=== PATIENT | male | born 1945 | race Caucasian/White ===

== ENCOUNTER 2021-06-19 06:56 | Day surgery (SDC) | payer MEDICARE, SELFPAY ==
[2021-06-12 11:07] VITALS: BMI 32.5
--- NOTE | 2021-06-18 12:12 | HO.ANESPROP2 ---
HPI - Anesthesia Eval Consult details Narrative: 75yo M for Colonoscopy PMFSH Active Problems Active Problems: All Active Problems (Updated 06/12/21 @ 10:56 by Marita Oconnor RN) Accelerated essential hypertension (Acute) Gout (Acute) Mood disorder (Acute) Dyslipidemia (Acute) Adult general medical exam (Acute) Screening for prostate cancer (Acute) Screening for colon cancer (Acute) Screening for diabetes mellitus (Acute) Past Medical History Medical History Depression Dyslipidemia Elevated cholesterol Gout HTN (hypertension) Mood disorder Screening for colon cancer Screening for diabetes mellitus Screening for prostate cancer Family History Family History Father Prostate cancer Hypertension Mother Hypertension Pancreatic cancer Family/Other Diabetes Surgical History Surgical History History of appendectomy History of colonoscopy History of hydrocelectomy History of knee replacement History of rectal polypectomy Hx of cataract extraction Social History Social History (Updated 06/12/21 @ 11:02 by Marita Oconnor RN) Alcohol intake: current Alcohol intake frequency: a few times a week Alcohol type: beer Patient Tobacco Use Status: Former Tobacco user Advance Directives Information Provided: Yes (informational brochure mailed) Advance Directives on File: No Meds Allergies Allergy/AdvReac Type Severity Reaction Status Date / Time No Known Allergies Allergy Mild NKA Verified 06/19/21 07:23 Home Medications Medication Instructions Recorded Confirmed Last Taken Type aspirin 81 mg tablet,delayed 81 mg PO DAILY 06/12/21 06/12/21 06/11/21 History release Exam Exam Date and Time: June 18, 2021 1212 Height,Weight and Vital Signs: Height 6 ft 1.5 in Weight 113.398 kg Assessment and Plan Assessment Anesthesia Assessment: Chart Reviewed
[2021-06-19 07:26] VITALS: BP 134/74; PULSE 64; RESP 20; TEMP 36.1; O2SAT 95
[2021-06-19] MEDS: Lactated Ringers 1,000 ML 100 ML IVCONT (07:38)
--- NOTE | 2021-06-19 08:01 | MHC.SHP ---
Pre-Procedural Eval Section A Date of Service: 06/19/21 The patient is an INPATIENT: No Changes since office visit: No Cold of Flu in the past 2 weeks, No New Medical Problems, No Changes in Medication and No Patient answered all questions The History & Physical has been completed within 30 days and I have reviewed it.: Yes Section B Chief Complaint: screening Allergies: Allergies Allergy/AdvReac Type Severity Reaction Status Date / Time No Known Allergies Allergy Mild NKA Verified 06/19/21 07:23 Plan I have reviewed the history and physical and performed a pertinent physical examination on my patient. No changes have occurred unless specified.
[2021-06-19 08:46] VITALS: BP 119/69; PULSE 46; RESP 16; TEMP 36.1; O2SAT 98
--- NOTE | 2021-06-19 08:52 | P.BOP_ITS ---
Brief Operative Note Date of Service: 06/19/21 Pre-op diagnosis: screening Post-op diagnosis: same (colon polyps) Procedure: colonoscopy Surgeon: Minesh Miranda Anesthesia: MAC Was an Collection Team Lead used for this Procedure?: No Estimated blood loss (mL): 2 Pathology: other (polyps x2) Condition: stable Disposition: PACU
[2021-06-19 09:00] VITALS: BP 135/63; PULSE 46; RESP 18; TEMP 36.1; O2SAT 98
--- NOTE | 2021-06-19 13:33 | OP_ITS ---
SURGEON: Minesh Miranda MD INDICATIONS: Colon cancer screening and prior history of adenomatous colon polyps. PREOPERATIVE DIAGNOSIS: POSTOPERATIVE DIAGNOSIS: PROCEDURE PERFORMED: ESTIMATED BLOOD LOSS: COMPLICATIONS: ANESTHESIA: Monitored anesthesia care. ASSISTANTS: SPECIMENS: PROCEDURES PERFORMED: Colonoscopy to the terminal ileum with biopsy and snare polypectomy. DESCRIPTION OF PROCEDURE: History and physical performed. The risks and benefits of the procedure were explained to the patient, and informed consent was obtained. The patient was placed in left lateral decubitus position. A digital rectal exam was performed and it was found to be normal. The Olympus pediatric video colonoscope was introduced into the rectum and advanced to the cecum without difficulty. The cecum was identified by transillumination, palpation, and identification of ileocecal valve. Examination was performed. The scope was removed. He tolerated the procedure well and was taken to the recovery area in stable condition. FINDINGS: The terminal ileum was normal. The visualized colonic mucosa was normal. The quality of the prep was good. There was some liquid stool coating the mucosa throughout the colon, which was washed and suctioned. Two polyps were identified. The first was located at 80 cm, measuring approximately 5 mm. This was removed with a snare and biopsy forceps. The second was located at 60 cm, measuring less than 5 mm, and was removed with biopsy forceps. No other polyps were identified. There was moderate sigmoid diverticulosis. Retroflexed examination showed moderate-sized internal hemorrhoids. IMPRESSION: Colon polyps. RECOMMENDATIONS: Follow up the biopsy results. MD SUZIE Jacques/DANEIL / [id number]
== END 2021-06-19 09:13 | disposition home or self-care (01) ==
PROVIDERS: PCP Internal Medicine; Visit Provider Internal Medicine Gastroenterology
PROC: 0DJD8ZZ Inspection of Lower Intestinal Tract, Via Natural or Artificial Opening Endoscopic (ICD-10-PCS; CPT 45378; principal; 2021-06-19 08:10)
DX: Z12.11 Encounter for screening for malignant neoplasm of colon (principal); Z86.010 Personal history of colon polyps; D12.4 Benign neoplasm of descending colon; K57.30 Diverticulosis of large intestine without perforation or abscess without bleeding; K64.8 Other hemorrhoids; F32.9 Major depressive disorder, single episode, unspecified; I10 Essential (primary) hypertension; E78.00 Pure hypercholesterolemia, unspecified; Z87.891 Personal history of nicotine dependence; Z79.82 Long term (current) use of aspirin; Z79.899 Other long term (current) drug therapy
CPT/HCPCS: 45385; 45380; 88305

== ENCOUNTER 2022-01-15 05:59 | Outpatient (REF) | payer MEDICARE, SELFPAY ==
[2022-01-15 06:08] LABS: MANUAL DIFF FLAG NO
[2022-01-15 07:21] LABS: Basophils Absolute Auto 0.1 X10*3/uL (0.0-0.2); Basophils Percent Auto 1.1 % (0-2); Eosinophils Absolute Auto 0.4 X10*3/uL (0.0-0.4); Eosinophils Percent Auto 6.1 % (0-4); Hematocrit 43.5 % (42.0-52.0); Hemoglobin 14.4 g/dl (14.0-18.0); Imm Gran Abs Auto 0.03 X10*3/uL (0.00-0.03); Imm Gran Pct Auto 0.4 % (0.0-0.4); Lymphocytes Absolute Auto 1.5 X10*3/uL (1.2-4.9); Lymphocytes Percent Auto 21.2 % (20-40); Mean Corpuscular HGB Conc 33.1 g/dl (31.0-36.0); Mean Corpuscular Volume 93.5 fL (80.0-98.0); Mean Platelet Volume 12.2 fL (9.4-12.4); Monocytes Absolute Auto 0.9 X10*3/uL (0.1-1.2); Neutrophils Absolute Auto 4.3 x10*3/uL (2.0-8.3); Neutrophils Percent Auto 59.2 % (45-73); Platelet Count 168 X10*3/uL (160-400); Red Blood Count 4.65 X10*6/uL (4.60-5.80); Red Cell Distribution Width 13.2 % (11.0-16.0); White Blood Count 7.3 X10*3/uL (4.8-10.8)
[2022-01-15 07:48] LABS: Alanine Aminotransferase 20 U/L (0-40); Albumin Level 4.3 g/dL (3.5-5.0); Alkaline Phosphatase 85 U/L (39-117); Anion Gap 13 (12-20); Aspartate Amino Transferase 24 U/L (5-37); Bilirubin Total 0.6 mg/dL (0.0-1.0); Blood Urea Nitrogen 23 mg/dL (9-16); Calcium 9.3 mg/dL (8.4-10.2); Carbon Dioxide 31 mmol/L (22-29); Chloride 103 mmol/L (96-108); Estimated Glomerular Filt Rate > 60; Glucose Fasting 95 mg/dL (60-99); Potassium 3.9 mmol/L (3.3-5.1); Sodium 143 mmol/L (135-145); Total Protein 6.7 g/dL (6.5-8.0)
[2022-01-15 08:11] LABS: Prostate Specific Antigen 0.93 ng/mL (<0.05-4.0)
== END 2022-01-15 06:00 | disposition home or self-care (01) ==
LOC: HO.LAB 05:59
PROVIDERS: Absent Provider Internal Medicine; PCP Internal Medicine; Visit Provider Nurse Practitioner Family
DX: Z13.0 Encounter for screening for diseases of the blood and blood-forming organs and certain disorders involving the immune mechanism (principal); Z13.1 Encounter for screening for diabetes mellitus; Z12.5 Encounter for screening for malignant neoplasm of prostate
CPT/HCPCS: 36415; 80053; 84153; 85025

== ENCOUNTER 2022-06-13 08:45 | Outpatient (REF) | payer MEDICARE, SELFPAY ==
--- NOTE | 2022-06-13 08:55 | ECG_ITS ---
Test Reason : essen. htn Blood Pressure : / mmHG Vent. Rate : 052 BPM Atrial Rate : 052 BPM P-R Int : 188 ms QRS Dur : 098 ms QT Int : 420 ms P-R-T Axes : 080 -23 040 degrees QTc Int : 390 ms Sinus bradycardia Intra-ventricular conduction delay Borderline ECG When compared with ECG of 07-SEP-2019 09:39, No significant change was found Referred By: Francisco Mares Electronically Signed By:BJ DESAI MD
[2022-06-13 09:04] LABS: MANUAL DIFF FLAG NO
[2022-06-13 09:44] LABS: Basophils Absolute Auto 0.1 X10*3/uL (0.0-0.2); Basophils Percent Auto 1.1 % (0-2); Eosinophils Absolute Auto 0.3 X10*3/uL (0.0-0.4); Hematocrit 43.7 % (42.0-52.0); Hemoglobin 14.3 g/dl (14.0-18.0); Imm Gran Abs Auto 0.02 X10*3/uL (0.00-0.03); Imm Gran Pct Auto 0.3 % (0.0-0.4); Lymphocytes Absolute Auto 1.4 X10*3/uL (1.2-4.9); Lymphocytes Percent Auto 22.3 % (20-40); Mean Corpuscular HGB Conc 32.7 g/dl (31.0-36.0); Mean Corpuscular Hemoglobin 30.4 pg (27.0-33.0); Monocytes Absolute Auto 0.5 X10*3/uL (0.1-1.2); Monocytes Percent Auto 8.1 % (2-11); Neutrophils Absolute Auto 4.1 x10*3/uL (2.0-8.3); Neutrophils Percent Auto 63.2 % (45-73); Platelet Count 162 X10*3/uL (160-400); Red Cell Distribution Width 13.1 % (11.0-16.0); White Blood Count 6.4 X10*3/uL (4.8-10.8)
[2022-06-13 09:46] LABS: Prothrombin Time 11.2 SEC (10.0-13.1)
[2022-06-13 09:51] LABS: Estimated Average Glucose 103 mg/dL; Hemoglobin A1c % 5.2 %
[2022-06-13 10:13] LABS: Anion Gap 17 (12-20); Blood Urea Nitrogen 22 mg/dL (9-16); Calcium 9.4 mg/dL (8.4-10.2); Carbon Dioxide 27 mmol/L (22-29); Chloride 100 mmol/L (96-108); Estimated Glomerular Filt Rate > 60; Glucose Fasting 138 mg/dL (60-99); Sodium 140 mmol/L (135-145)
[2022-06-13 10:45] LABS: Creatinine Urine 206.77 mg/dL
== END 2022-06-13 08:46 | disposition home or self-care (01) ==
LOC: HO.LAB 08:45
PROVIDERS: PCP Internal Medicine; Visit Provider Internal Medicine
DX: I10 Essential (primary) hypertension (principal); R51.9 Headache, unspecified; E11.69 Type 2 diabetes mellitus with other specified complication; E66.01 Morbid (severe) obesity due to excess calories; E11.65 Type 2 diabetes mellitus with hyperglycemia; Z13.0 Encounter for screening for diseases of the blood and blood-forming organs and certain disorders involving the immune mechanism
CPT/HCPCS: 36415; 80048; 82043; 82947; 83036; 85025; 85610; 85730; 93005

== ENCOUNTER 2023-05-09 06:10 | Outpatient (REF) | payer MEDICARE, SELFPAY ==
[2023-05-09 06:23] LABS: MANUAL DIFF FLAG NO
[2023-05-09 07:13] LABS: Basophils Absolute Auto 0.1 X10*3/uL (0.0-0.2); Basophils Percent Auto 0.9 % (0-2); Eosinophils Absolute Auto 0.3 X10*3/uL (0.0-0.4); Eosinophils Percent Auto 3.7 % (0-4); Hematocrit 45.9 % (42.0-52.0); Hemoglobin 14.8 g/dl (14.0-18.0); Imm Gran Abs Auto 0.05 X10*3/uL (0.00-0.03); Imm Gran Pct Auto 0.6 % (0.0-0.4); Lymphocytes Absolute Auto 1.3 X10*3/uL (1.2-4.9); Lymphocytes Percent Auto 15.8 % (20-40); Mean Corpuscular HGB Conc 32.2 g/dl (31.0-36.0); Mean Corpuscular Hemoglobin 30.1 pg (27.0-33.0); Mean Corpuscular Volume 93.5 fL (80.0-98.0); Mean Platelet Volume 11.5 fL (9.4-12.4); Monocytes Absolute Auto 0.9 X10*3/uL (0.1-1.2); Monocytes Percent Auto 10.1 % (2-11); Neutrophils Absolute Auto 5.9 x10*3/uL (2.0-8.3); Neutrophils Percent Auto 68.9 % (45-73); Platelet Count 198 X10*3/uL (160-400); Red Blood Count 4.91 X10*6/uL (4.60-5.80); Red Cell Distribution Width 14.5 % (11.0-16.0); White Blood Count 8.5 X10*3/uL (4.8-10.8)
[2023-05-09 07:28] LABS: Alanine Aminotransferase 15 U/L (0-40); Albumin Level 4.4 g/dL (3.5-5.0); Alkaline Phosphatase 91 U/L (39-117); Anion Gap 20 (12-20); Aspartate Amino Transferase 22 U/L (5-37); Bilirubin Total 0.8 mg/dL (0.0-1.0); Blood Urea Nitrogen 15 mg/dL (9-16); Calcium 10.4 mg/dL (8.4-10.2); Carbon Dioxide 27 mmol/L (22-29); Chloride 103 mmol/L (96-108); Cholesterol 165 mg/dL (<200); Estimated Glomerular Filt Rate > 60; Glucose Fasting 99 mg/dL (60-99); HDL Cholesterol 58 mg/dL (>40); LDL Cholesterol Calculated 85 mg/dL (<100); Potassium 4.1 mmol/L (3.3-5.1); Sodium 146 mmol/L (135-145); Total Protein 7.4 g/dL (6.5-8.0); Triglycerides 112 mg/dL (<150)
[2023-05-09 07:53] LABS: Prostate Specific Antigen Scr 0.98 ng/mL (<0.05-4.0)
== END 2023-05-09 06:11 | disposition home or self-care (01) ==
LOC: HO.LAB 06:10
PROVIDERS: PCP Internal Medicine; Visit Provider Internal Medicine
DX: Z00.00 Encounter for general adult medical examination without abnormal findings (principal); Z12.5 Encounter for screening for malignant neoplasm of prostate; D64.9 Anemia, unspecified; N28.9 Disorder of kidney and ureter, unspecified; E78.5 Hyperlipidemia, unspecified
CPT/HCPCS: 36415; 80053; 80061; 84153; 85025

== ENCOUNTER 2023-05-13 09:46 | Outpatient (AMB) | payer MEDICARE, SELFPAY ==
[2023-05-13 09:47] VITALS: BP 144/64; PULSE 65; O2SAT 98; BMI 32.0
--- NOTE | 2023-05-13 09:47 | A.OFFPC_ITS ---
Vital Signs 05/13/23 09:47 Height 6 ft 1.5 in Weight 246 lb BMI 32.0 BP 144/64 H Blood Pressure Location Lt brachial Position Sitting Pulse 65 Pulse Source Pulse Oximeter Pulse Oximetry (%) 98 Oxygen Delivery Method Room Air Intake Visit Reasons: increased fatigue and anxiety Allergies No Known Allergies Allergy (Mild, Verified 05/13/23 09:47) NKA Medication List - Last Reconciled 05/13/23 by Francisco Mares MD allopurinol 300 mg PO DAILY amlodipine 10 mg PO DAILY aspirin 81 mg PO DAILY hydrochlorothiazide 25 mg PO DAILY lovastatin 80 mg (2 x 40 mg) PO DAILY sertraline 100 mg PO DAILY Tobacco use date assessed: 01/13/23 Fall risk assessment: No Falls in past year Last assessed Fall Risk: 05/13/23 Dental Screening Dental Screen Date: 05/13/23 Did you have a dental visit in the last 12 months?: No Did you have a dental problem in the last 6 months where you did not have access to dental care?: No Was dental information given to patient?: Patient has dentist HPI increased fatigue and anxiety HPI Details gout htn and hyperlipidemia; stable on rx PFSH Medical History (Updated 05/13/23 @ 10:59 by Francisco Mares MD) Gout Hypertension Elevated cholesterol HTN (hypertension) Depression Screening for prostate cancer Screening for colon cancer Screening for diabetes mellitus Dyslipidemia Mood disorder Surgical History History of total right knee replacement Hx of cataract extraction History of colonoscopy History of knee replacement History of rectal polypectomy History of hydrocelectomy History of appendectomy Family History Father Prostate cancer Hypertension Mother Hypertension Pancreatic cancer Family/Other Diabetes Sister Mental health disorder Social History Housing: House Alcohol intake: current Alcohol intake frequency: a few times a week Alcohol type: beer Patient Tobacco Use Status: Former Tobacco user e-Cigarette/Vaping Use: Never Used Second Hand Smoke Exposure: No service: No Current occupational status: retired Cognitive needs: No Hearing needs: No Vision needs: No Questionnaire PHQ-9 Over the last 2 weeks, how often have you been bothered by any of the following problems? 1. Little interest or pleasure in doing things: not at all 2. Feeling down, depressed, or hopeless: not at all 3. Trouble falling or staying asleep, or sleeping too much: not at all 4. Feeling tired or having little energy: not at all 5. Poor appetite or overeating: not at all 6. Feeling bad about yourself - or that you are a failure or have let yourself or your family down: not at all 7. Trouble concentrating on things, such as reading the newspaper or watching television: not at all 8. Moving or speaking so slowly that other people could have noticed. Or the opposite - being so fidgety or restless that you have been moving around a lot more than usual: not at all 9. Thoughts that you would be better off or of hurting yourself in some way: not at all Total score: 0 Depression Screening Interpretation: Negative 05372 - PHQ-9 Billing: Yes Source: Developed by Drs. Iban Quezada, Belinda Banda, Vinnie allen nd colleagues, with an educational ricky from [employer]. Thrive Questionnaire Date Thrive assessed: 01/13/23 AUDIT C Alcohol Use Questionnaire (AUDIT-C) 1. How often do you have a drink containing alcohol?: 2-3 times a week 2. How many drinks containing alcohol do you have on a typical day when you are drinking?: 5 or 6 3. How often do you have six or more drinks on one occasion?: Weekly Total Score: 8 Score Reviewed/Action Taken: Yes NIRU-7 AMB Questionnaire NIRU-7 Date NIRU - 7 assessed: 01/13/23 Source: Developed by Drs. Iban Quezada, Belinda Banda, Vinnie Greenfield and colleagues, with an educational ricky from [employer]. Review of Systems Const Denies chills, Denies headache(s) and Denies weight loss ENT Denies headache(s) Card Denies chest pain, Denies syncope, Denies irregular heart rhythm and Denies dyspnea Resp Denies chest congestion, Denies cough and Denies dyspnea GI Denies abdominal pain, Denies change in stool character, Denies nausea and Denies vomiting Musc Denies deformity and Denies joint swelling Neuro Denies syncope and Denies headache(s) Physical exam (Primary Care) Vital Signs: Last Vital Signs Pulse 65 05/13/23 09:47 BP 144/64 H 05/13/23 09:47 Pulse Ox 98 05/13/23 09:47 Oxygen Delivery Method Room Air 05/13/23 09:47 BMI result Body Mass Index 32.0 Tobacco/Smoking Status: Tobacco use Status Tobacco use date assessed 01/13/23 05/13/23 09:48 Patient Tobacco Use Status Former Tobacco user 05/13/23 09:48 e-Cigarette/Vaping Use Never Used 05/13/23 09:48 PHQ-9: PHQ-9 Score PHQ-9: Total score 0 05/13/23 09:58 Depression Screening Interpretation: Negative Thrive Assessment: Date of Thrive Assessment Date Thrive assessed 01/13/23 05/13/23 09:48 Const General: cooperative, comfortable, no acute distress and alert Neck Neck: Yes no lymphadenopathy Thyroid: Thyroid normal Resp Effort & Inspection: normal respiratory effort Auscultation: clear to auscultation bilaterally Percussion: percussion normal Cardio Jugular venous distension: no JVD Palpation: normal PMI Rate: regular rate Rhythm: regular rhythm Heart sounds: S1 normal heart sound present and S2 normal heart sound present GI Inspection: Yes normal to inspection Palpation (GI): No hepatosplenomegaly present Skin General skin exam: no rashes or lesions noted Extrem General: Yes no clubbing, cyanosis or edema Office Procedures Flu Questionnaire Does the patient have a severe egg allergy?: No Does the patient have severe life threatening allergies?: No Does the patient have a fever or illness today?: No Has the patient ever had Guillain-Dale Syndrome?: No Has the patient ever had any past reaction to a flu shot?: No Immunizations flu vacc [id number] 6mos up(PF) 60 mcg(15 mcgx4)/0.5 mL IM syringe Performing Provider: Francisco Mares MD [facility] Administered by: ISIDRA Braga on 05/13/23 09:58 Dose Route Admin Location Dispensed Lot Number Expiration Date NDC [employer] 0.5 mL IM Right Deltoid 0.5 mL [id number] 02/08/24 01005-881-29 [place] VIS Given Date VIS Provided VIS Publication Date 05/13/23 Single Vaccine 21 Eligibility Eligibility Date Funding Source Not [facility] Eligible 05/13/23 Private Assessment and Plan Assessment & Plan (1) Hyperlipidemia: Code(s): E78.5 - Hyperlipidemia, unspecified Plan: stable; same rx (2) Hypertension: Code(s): I10 - Essential (primary) hypertension Plan: stable; same rx (3) Gout: Code(s): M10.9 - Gout, unspecified Plan: stable; same rx Orders: Orders ECG 12 lead EKG Today R00.2 - Palpitations Influenza 3414-0333 Immunization Today Z23 - Encounter for immunization Thyroid Stimulating Hormone Today E03.9 - Hypothyroidism, unspecified Coding Level of Care Code Est Pt Level 4 (46043) Diagnoses Hyperlipidemia E78.5 Hypertension I10 Gout M10.9
== END 2023-05-13 10:13 | disposition home or self-care (01) ==
PROVIDERS: PCP Internal Medicine; Visit Provider Internal Medicine
DX: E78.5 Hyperlipidemia, unspecified (principal); I10 Essential (primary) hypertension; M10.9 Gout, unspecified; Z23 Encounter for immunization
CPT/HCPCS: 90471; 90686; 99214

== ENCOUNTER 2023-05-13 10:20 | Outpatient (REF) | payer MEDICARE, SELFPAY ==
--- NOTE | 2023-05-13 10:25 | ECG_ITS ---
Test Reason : palpitations Blood Pressure : / mmHG Vent. Rate : 062 BPM Atrial Rate : 062 BPM P-R Int : 192 ms QRS Dur : 100 ms QT Int : 418 ms P-R-T Axes : 077 -38 041 degrees QTc Int : 424 ms Sinus rhythm with occasional Premature ventricular complexes Left axis deviation Abnormal ECG When compared with ECG of 13-JUN-2022 08:55, Premature ventricular complexes are now Present QRS axis Shifted left Referred By: Francisco Mares Electronically Signed By:THANH PROCTOR
[2023-05-13 13:43] LABS: Cholesterol 159 mg/dL (<200); Glucose Fasting 107 mg/dL (60-99); HDL Cholesterol 53 mg/dL (>40); LDL Cholesterol Calculated 79 mg/dL (<100); Thyroid Stimulating Hormone 1.83 uIU/mL (0.32-4.0); Triglycerides 137 mg/dL (<150)
== END 2023-05-13 10:21 | disposition home or self-care (01) ==
LOC: HO.LAB 10:20
PROVIDERS: PCP Internal Medicine; Visit Provider Internal Medicine
DX: R73.9 Hyperglycemia, unspecified (principal); E78.5 Hyperlipidemia, unspecified; E03.9 Hypothyroidism, unspecified; R00.2 Palpitations
CPT/HCPCS: 36415; 80061; 82947; 84443; 93005

== ENCOUNTER 2023-09-25 09:21 | Outpatient (AMB) | payer MEDICARE, SELFPAY ==
[2023-09-25 09:22] VITALS: BP 118/68; PULSE 60; O2SAT 98; BMI 32.3
--- NOTE | 2023-09-25 09:22 | MHC.PC.OV ---
Vital Signs 09/25/23 09:22 Height 6 ft 1.5 in Weight 248 lb BMI 32.3 BP 118/68 Blood Pressure Location Lt brachial Position Sitting Pulse 60 Pulse Source Pulse Oximeter Pulse Oximetry (%) 98 Oxygen Delivery Method Room Air Intake Visit Reasons: 4 month f/u Case Filler Required: No Candle Molder Hand: Not Required per policy Accompanied by: Self / Same As Patient Allergies No Known Allergies Allergy (Mild, Verified 09/25/23 09:23) NKA Medication List - Last Reconciled 09/25/23 by Francisco Mares MD allopurinol 300 mg PO DAILY amlodipine 10 mg PO DAILY aspirin 81 mg PO DAILY hydrochlorothiazide 25 mg PO DAILY lovastatin 80 mg (2 x 40 mg) PO DAILY sertraline 100 mg PO DAILY Tobacco use date assessed: 09/25/23 Fall risk assessment: No Falls in past year Last assessed Fall Risk: 09/25/23 Dental Screening Dental Screen Date: 09/25/23 Did you have a dental visit in the last 12 months?: Yes Did you have a dental problem in the last 6 months where you did not have access to dental care?: No Was dental information given to patient?: Patient has dentist HPI 4 month f/u HPI Details depression htn and gout; doing well and compliant [facility] Medical History (Updated 05/13/23 @ 10:59 by Francisco Mares MD) Gout Hypertension Elevated cholesterol HTN (hypertension) Depression Screening for prostate cancer Screening for colon cancer Screening for diabetes mellitus Dyslipidemia Mood disorder Surgical History History of total right knee replacement Hx of cataract extraction History of colonoscopy History of knee replacement History of rectal polypectomy History of hydrocelectomy History of appendectomy Family History Father Prostate cancer Hypertension Mother Hypertension Pancreatic cancer Family/Other Diabetes Sister Mental health disorder Social History Housing: House Alcohol intake: current Alcohol intake frequency: a few times a week Alcohol type: beer Patient Tobacco Use Status: Former Tobacco user e-Cigarette/Vaping Use: Never Used Second Hand Smoke Exposure: No service: No Current occupational status: retired Cognitive needs: No Hearing needs: No Vision needs: No Questionnaire PHQ-9 Over the last 2 weeks, how often have you been bothered by any of the following problems? 1. Little interest or pleasure in doing things: not at all 2. Feeling down, depressed, or hopeless: not at all 3. Trouble falling or staying asleep, or sleeping too much: not at all 4. Feeling tired or having little energy: not at all 5. Poor appetite or overeating: not at all 6. Feeling bad about yourself - or that you are a failure or have let yourself or your family down: not at all 7. Trouble concentrating on things, such as reading the newspaper or watching television: not at all 8. Moving or speaking so slowly that other people could have noticed. Or the opposite - being so fidgety or restless that you have been moving around a lot more than usual: not at all 9. Thoughts that you would be better off or of hurting yourself in some way: not at all Total score: 0 Depression Screening Interpretation: Negative Depression Screening Done: Yes 49126 - PHQ-9 Billing: Yes Source: Developed by Drs. Iban Quezada, Belinda Banda, Vinnie Greenfield and colleagues, with an educational ricky from [employer]. Thrive Questionnaire Date Thrive assessed: 09/25/23 I am a: Patient What is your living situation today?: I have a steady place to live Within the past 12 months, did the food you bought not last and you didn't have the money to get more?: Never true Within the past 12 months, did you worry whether your food would run out before you got money to buy more?: Never true Do you have trouble paying for medicines?: No Do you have trouble getting transportation to medical appointments?: No Do you have trouble paying your heating and electricity bill?: No Do you have trouble taking care of your child, family member or friend?: No Do you have trouble with day-to-day activities such as bathing, preparing meals, shopping, managing finances, etc.?: No Are you currently unemployed and looking for a job?: No Are you interested in more education?: No Please select the resources that you would like help with: None THRIVE Score: 0 AUDIT C Alcohol Use Questionnaire (AUDIT-C) 1. How often do you have a drink containing alcohol?: 2-3 times a week 2. How many drinks containing alcohol do you have on a typical day when you are drinking?: 5 or 6 3. How often do you have six or more drinks on one occasion?: Weekly Total Score: 8 Score Reviewed/Action Taken: Yes NIRU-7 AMB Questionnaire NIRU-7 Date NIRU - 7 assessed: 09/25/23 Feeling nervous, anxious, or on edge: 0 = Not at all Not being able to stop or control worryin = Not at all Worrying too much about different things: 0 = Not at all Trouble relaxin = Not at all Being so restless that it is hard to sit still: 0 = Not at all Becoming easily annoyed or irritable: 0 = Not at all Feeling afraid as if something awful might happen: 0 = Not at all Total NIRU-7 score (0-4 normal; 5-9 mild; 10-14 moderate; 15-21 severe): 0 Source: Developed by Drs. Iban Quezada, Belinda Banda, Vinnie Greenfield and colleagues, with an educational ricky from [employer]. NIRU-7 Assessment Billing NIRU-7 Assessment Tool: NIRU-7 Assessment 30234 Review of Systems Const Denies chills, Denies headache(s) and Denies weight loss ENT Denies headache(s) Card Denies chest pain, Denies syncope, Denies irregular heart rhythm and Denies dyspnea Resp Denies chest congestion, Denies cough and Denies dyspnea GI Denies abdominal pain, Denies change in stool character, Denies nausea and Denies vomiting Musc Denies deformity and Denies joint swelling Neuro Denies syncope and Denies headache(s) Physical exam (Primary Care) Vital Signs: Last Vital Signs Pulse 60 09/25/23 09:22 BP 118/68 09/25/23 09:22 Pulse Ox 98 09/25/23 09:22 Oxygen Delivery Method Room Air 09/25/23 09:22 BMI result Body Mass Index 32.3 Tobacco/Smoking Status: Tobacco use Status Tobacco use date assessed 09/25/23 09/25/23 09:24 Patient Tobacco Use Status Former Tobacco user 09/25/23 09:24 e-Cigarette/Vaping Use Never Used 09/25/23 09:24 PHQ-9: PHQ-9 Score PHQ-9: Total score 0 09/25/23 09:24 Depression Screening Interpretation: Negative Thrive Assessment: Date of Thrive Assessment Date Thrive assessed 09/25/23 09/25/23 09:24 Const General: cooperative, comfortable, no acute distress and alert Neck Neck: Yes no lymphadenopathy Thyroid: Thyroid normal Resp Effort & Inspection: normal respiratory effort Auscultation: clear to auscultation bilaterally Percussion: percussion normal Cardio Jugular venous distension: no JVD Palpation: normal PMI Rate: regular rate Rhythm: regular rhythm Heart sounds: S1 normal heart sound present and S2 normal heart sound present GI Inspection: Yes normal to inspection Palpation (GI): No hepatosplenomegaly present Skin General skin exam: no rashes or lesions noted Extrem General: Yes no clubbing, cyanosis or edema Assessment and Plan Assessment & Plan (1) Gout: Code(s): M10.9 - Gout, unspecified Plan: stable; same rx (2) Depression: Code(s): F32.A - Depression, unspecified Plan: stable; same rx (3) Hypertension: Code(s): I10 - Essential (primary) hypertension Plan: stable; sme rx Orders: Orders Comprehensive [place]. Panel Fast Today N28.9 - Disorder of kidney and ureter, unspecified Lipid Panel Today E78.5 - Hyperlipidemia, unspecified Uric Acid Today M10.9 - Gout, unspecified Complete Blood Count Auto Diff Today D64.9 - Anemia, unspecified Medications: Refilled sertraline 100 mg PO DAILY 90 tabs 8RF Coding Level of Care Code Est Pt Level 4 (68904) Diagnoses Gout M10.9 Depression F32.A Hypertension I10 Additional Codes NIRU-7 Assessment Billing - NIRU-7 Assessment Tool: NIRU-7 Assessment 59650 ([id number])
== END 2023-09-25 09:48 | disposition home or self-care (01) ==
PROVIDERS: PCP Internal Medicine; Visit Provider Internal Medicine
DX: M10.9 Gout, unspecified (principal); F32.A Depression, unspecified; I10 Essential (primary) hypertension
CPT/HCPCS: 99214

== ENCOUNTER 2024-04-19 06:00 | Outpatient (REF) | payer MEDICARE, SELFPAY ==
[2024-04-19 06:15] LABS: MANUAL DIFF FLAG NO
[2024-04-19 07:50] LABS: Basophils Absolute Auto 0.1 X10*3/uL (0.0-0.2); Basophils Percent Auto 1.1 % (0-2); Eosinophils Absolute Auto 0.4 X10*3/uL (0.0-0.4); Eosinophils Percent Auto 5.4 % (0-4); Hematocrit 43.9 % (42.0-52.0); Hemoglobin 14.3 g/dl (14.0-18.0); Imm Gran Abs Auto 0.05 X10*3/uL (0.00-0.03); Imm Gran Pct Auto 0.7 % (0.0-0.4); Lymphocytes Absolute Auto 1.1 X10*3/uL (1.2-4.9); Lymphocytes Percent Auto 15.3 % (20-40); Mean Corpuscular HGB Conc 32.6 g/dl (31.0-36.0); Mean Corpuscular Hemoglobin 30.9 pg (27.0-33.0); Mean Corpuscular Volume 94.8 fL (80.0-98.0); Mean Platelet Volume 11.3 fL (9.4-12.4); Monocytes Absolute Auto 0.8 X10*3/uL (0.1-1.2); Monocytes Percent Auto 10.8 % (2-11); Neutrophils Absolute Auto 4.9 x10*3/uL (2.0-8.3); Neutrophils Percent Auto 66.7 % (45-73); Platelet Count 217 X10*3/uL (160-400); Red Blood Count 4.63 X10*6/uL (4.60-5.80); Red Cell Distribution Width 13.4 % (11.0-16.0); White Blood Count 7.3 X10*3/uL (4.8-10.8)
[2024-04-19 08:20] LABS: Alanine Aminotransferase 14 U/L (0-40); Albumin Level 4.1 g/dL (3.5-5.0); Alkaline Phosphatase 85 U/L (39-117); Aspartate Amino Transferase 20 U/L (5-37); Bilirubin Total 0.4 mg/dL (0.0-1.0); Blood Urea Nitrogen 19 mg/dL (9-16); Calcium 9.9 mg/dL (8.4-10.2); Carbon Dioxide 29 mmol/L (22-29); Chloride 105 mmol/L (96-108); Cholesterol 153 mg/dL (<200); Estimated Glomerular Filt Rate > 60; Glucose Fasting 96 mg/dL (60-99); HDL Cholesterol 50 mg/dL (>40); LDL Cholesterol Calculated 80 mg/dL (<100); Potassium 4.1 mmol/L (3.3-5.1); Sodium 145 mmol/L (135-145); Total Protein 6.9 g/dL (6.5-8.0); Triglycerides 115 mg/dL (<150)
[2024-04-19 08:44] LABS: Anion Gap 14 (12-20); Uric Acid 5.8 mg/dL (3.4-7.0)
== END 2024-04-19 06:01 | disposition home or self-care (01) ==
LOC: HO.LAB 06:00
PROVIDERS: PCP Internal Medicine; Visit Provider Internal Medicine
DX: N28.9 Disorder of kidney and ureter, unspecified (principal); D64.9 Anemia, unspecified; E78.5 Hyperlipidemia, unspecified; M10.9 Gout, unspecified
CPT/HCPCS: 36415; 80053; 80061; 84550; 85025

== ENCOUNTER 2024-04-21 09:50 | Outpatient (AMB) | payer MEDICARE, SELFPAY ==
[2024-04-21 09:52] VITALS: BP 132/68; PULSE 64; O2SAT 98; BMI 32.3
--- NOTE | 2024-04-21 09:52 | A.OFFPC_ITS ---
Vital Signs 04/21/24 09:52 Height 6 ft 1.5 in Weight 248 lb BMI 32.3 BP 132/68 Blood Pressure Location Lt brachial Position Sitting Pulse 64 Pulse Source Pulse Oximeter Pulse Oximetry (%) 98 Oxygen Delivery Method Room Air Intake Visit Reasons: 6 month f/u appt Top Collar Baster Required: No Accompanied by: Self / Same As Patient Allergies No Known Allergies Allergy (Mild, Verified 04/21/24 09:54) NKA Medication List - Last Reconciled 04/21/24 by Francisco Mares MD allopurinol 300 mg PO DAILY amlodipine 10 mg PO DAILY aspirin 81 mg PO DAILY hydrochlorothiazide 25 mg PO DAILY lovastatin 80 mg (2 x 40 mg) PO DAILY sertraline 100 mg PO DAILY Tobacco use date assessed: 09/25/23 Fall risk assessment: 2 + Falls in past year (Having vision issues after surgery.) Last assessed Fall Risk: 04/21/24 Dental Screening Dental Screen Date: 09/25/23 HPI 6 month f/u appt HPI Details HTN on Rx; doing well; compliant [facility] Medical History (Updated 05/13/23 @ 10:59 by Francisco Mares MD) Gout Hypertension Elevated cholesterol HTN (hypertension) Depression Screening for prostate cancer Screening for colon cancer Screening for diabetes mellitus Dyslipidemia Mood disorder Surgical History History of total right knee replacement Hx of cataract extraction History of colonoscopy History of knee replacement History of rectal polypectomy History of hydrocelectomy History of appendectomy Family History Father Prostate cancer Hypertension Mother Hypertension Pancreatic cancer Family/Other Diabetes Sister Mental health disorder Social History Housing: House Alcohol intake: current Alcohol intake frequency: a few times a week Alcohol type: beer Patient Tobacco Use Status: Former Tobacco user Tobacco use type: Cigarette e-Cigarette/Vaping Use: Never Used Second Hand Smoke Exposure: No service: No Current occupational status: retired Cognitive needs: No Hearing needs: No Vision needs: No Questionnaire PHQ-9 Over the last 2 weeks, how often have you been bothered by any of the following problems? 1. Little interest or pleasure in doing things: not at all 2. Feeling down, depressed, or hopeless: not at all 3. Trouble falling or staying asleep, or sleeping too much: not at all 4. Feeling tired or having little energy: not at all 5. Poor appetite or overeating: not at all 6. Feeling bad about yourself - or that you are a failure or have let yourself or your family down: not at all 7. Trouble concentrating on things, such as reading the newspaper or watching television: not at all 8. Moving or speaking so slowly that other people could have noticed. Or the opposite - being so fidgety or restless that you have been moving around a lot more than usual: not at all 9. Thoughts that you would be better off or of hurting yourself in some way: not at all Total score: 0 Depression Screening Interpretation: Negative Depression Screening Done: Yes 91662 - PHQ-9 Billing: Yes Source: Developed by Drs. Iban Quezada, Belinda Banda, Vinnie Greenfield and colleagues, with an educational ricky from [employer]. Thrive Questionnaire Date Thrive assessed: 09/25/23 AUDIT C Alcohol Use Questionnaire (AUDIT-C) 1. How often do you have a drink containing alcohol?: 2-3 times a week 2. How many drinks containing alcohol do you have on a typical day when you are drinking?: 5 or 6 3. How often do you have six or more drinks on one occasion?: Weekly Total Score: 8 Score Reviewed/Action Taken: Yes NIRU-7 AMB Questionnaire NIRU-7 Date NIRU - 7 assessed: 09/25/23 Source: Developed by Drs. Iban Quezada, Belinda Banda, Vinnie Greenfield and colleagues, with an educational ricky from [employer]. Review of Systems Const Denies chills, Denies headache(s) and Denies weight loss ENT Denies headache(s) Card Denies chest pain, Denies syncope, Denies irregular heart rhythm and Denies dyspnea Resp Denies chest congestion, Denies cough and Denies dyspnea GI Denies abdominal pain, Denies change in stool character, Denies nausea and Denies vomiting Musc Denies deformity and Denies joint swelling Neuro Denies syncope and Denies headache(s) Physical exam (Primary Care) Vital Signs: Last Vital Signs Pulse 64 04/21/24 09:52 BP 132/68 04/21/24 09:52 Pulse Ox 98 04/21/24 09:52 Oxygen Delivery Method Room Air 04/21/24 09:52 BMI result Body Mass Index 32.3 Tobacco/Smoking Status: Tobacco use Status Tobacco use date assessed 09/25/23 04/21/24 09:56 Patient Tobacco Use Status Former Tobacco user 04/21/24 09:56 Tobacco use type Cigarette 04/21/24 09:56 e-Cigarette/Vaping Use Never Used 04/21/24 09:56 PHQ-9: PHQ-9 Score PHQ-9: Total score 0 04/21/24 09:56 Depression Screening Interpretation: Negative Thrive Assessment: Date of Thrive Assessment Date Thrive assessed 09/25/23 04/21/24 09:56 Const General: cooperative, comfortable, no acute distress and alert Neck Neck: Yes no lymphadenopathy Thyroid: Thyroid normal Resp Effort & Inspection: normal respiratory effort Auscultation: clear to auscultation bilaterally Percussion: percussion normal Cardio Jugular venous distension: no JVD Palpation: normal PMI Rate: regular rate Rhythm: regular rhythm Heart sounds: S1 normal heart sound present and S2 normal heart sound present GI Inspection: Yes normal to inspection Palpation (GI): No hepatosplenomegaly present Skin General skin exam: no rashes or lesions noted Extrem General: Yes no clubbing, cyanosis or edema Assessment and Plan Assessment & Plan (1) Hypertension: Code(s): I10 - Essential (primary) hypertension Plan: stable; same rx Orders: Orders Complete Blood Count Auto Diff Today Z13.0 - Encounter for screening for diseases of the blood and blood-forming organs and certain disorders involving the immune mechanism Thyroid Stimulating Hormone Today Z13.29 - Encounter for screening for other suspected endocrine disorder Lipid Panel Today Z13.220 - Encounter for screening for lipoid disorders Comprehensive [place]. Panel Fast Today Z13.9 - Encounter for screening, unspecified Coding Level of Care Code Est Pt Level 3 (57229) Diagnoses Hypertension I10
== END 2024-04-21 10:11 | disposition home or self-care (01) ==
PROVIDERS: PCP Internal Medicine; Visit Provider Internal Medicine
DX: I10 Essential (primary) hypertension (principal)
CPT/HCPCS: 99213

== ENCOUNTER 2024-05-31 12:44 | Outpatient (AMB) | payer MEDICARE, SELFPAY ==
--- NOTE | 2024-05-31 12:48 | A.OFFPC_ITS ---
Vital Signs 05/31/24 12:49 Height 6 ft 1.5 in Weight 254 lb BMI 33.1 BP 144/74 H Blood Pressure Location Lt brachial Position Sitting Pulse 98 Pulse Source Pulse Oximeter Pulse Oximetry (%) 93 Oxygen Delivery Method Room Air Intake Visit Reasons: fishers retina 06/16 [employer] Required: No Accompanied by: Self / Same As Patient Allergies No Known Allergies Allergy (Mild, Verified 05/31/24 12:49) NKA Medication List - Last Reconciled 06/01/24 by Francisco Mares MD allopurinol 300 mg PO DAILY amlodipine 10 mg PO DAILY aspirin 81 mg PO DAILY hydrochlorothiazide 25 mg PO DAILY lovastatin 80 mg (2 x 40 mg) PO DAILY sertraline 100 mg PO DAILY Tobacco use date assessed: 09/25/23 Fall risk assessment: 2 + Falls in past year (2-3 falls) Last assessed Fall Risk: 05/31/24 Dental Screening Dental Screen Date: 09/25/23 HPI fishers retina 06/16 HPI Details having surgery on his left eye for a retinal detachment; has gout, hypertension and hyperlipidemia; all well controlled; depression also stable on rx; no history of CAD PFSH Medical History (Updated 05/13/23 @ 10:59 by Francisco Mares MD) Gout Hypertension Elevated cholesterol HTN (hypertension) Depression Screening for prostate cancer Screening for colon cancer Screening for diabetes mellitus Dyslipidemia Mood disorder Surgical History History of total right knee replacement Hx of cataract extraction History of colonoscopy History of knee replacement History of rectal polypectomy History of hydrocelectomy History of appendectomy Family History Father Prostate cancer Hypertension Mother Hypertension Pancreatic cancer Family/Other Diabetes Sister Mental health disorder Social History Housing: House Alcohol intake: current Alcohol intake frequency: a few times a week Alcohol type: beer Patient Tobacco Use Status: Former Tobacco user Tobacco use type: Cigarette e-Cigarette/Vaping Use: Never Used Second Hand Smoke Exposure: No service: No Current occupational status: retired Cognitive needs: No Hearing needs: No Vision needs: No Questionnaire PHQ-9 Over the last 2 weeks, how often have you been bothered by any of the following problems? 1. Little interest or pleasure in doing things: not at all 2. Feeling down, depressed, or hopeless: not at all 3. Trouble falling or staying asleep, or sleeping too much: not at all 4. Feeling tired or having little energy: not at all 5. Poor appetite or overeating: not at all 6. Feeling bad about yourself - or that you are a failure or have let yourself or your family down: not at all 7. Trouble concentrating on things, such as reading the newspaper or watching television: not at all 8. Moving or speaking so slowly that other people could have noticed. Or the opposite - being so fidgety or restless that you have been moving around a lot more than usual: not at all 9. Thoughts that you would be better off or of hurting yourself in some way: not at all Total score: 0 Depression Screening Interpretation: Negative Depression Screening Done: Yes 50953 - PHQ-9 Billing: Yes Source: Developed by Drs. Iban Quezada, Belinda Banda, Vinnie Greenfield and colleagues, with an educational ricky from [employer]. Thrive Questionnaire Date Thrive assessed: 09/25/23 I am a: Patient What is your living situation today?: I have a steady place to live Within the past 12 months, did the food you bought not last and you didn't have the money to get more?: Never true Within the past 12 months, did you worry whether your food would run out before you got money to buy more?: Never true Do you have trouble paying for medicines?: No Do you have trouble getting transportation to medical appointments?: No Do you have trouble paying your heating and electricity bill?: No Do you have trouble taking care of your child, family member or friend?: No Do you have trouble with day-to-day activities such as bathing, preparing meals, shopping, managing finances, etc.?: No Are you currently unemployed and looking for a job?: No Are you interested in more education?: No Please select the resources that you would like help with: None THRIVE Score: 0 AUDIT C Alcohol Use Questionnaire (AUDIT-C) 1. How often do you have a drink containing alcohol?: 2-3 times a week 2. How many drinks containing alcohol do you have on a typical day when you are drinking?: 5 or 6 3. How often do you have six or more drinks on one occasion?: Weekly Total Score: 8 Score Reviewed/Action Taken: Yes NIRU-7 AMB Questionnaire NIRU-7 Date NIRU - 7 assessed: 09/25/23 Feeling nervous, anxious, or on edge: 0 = Not at all Not being able to stop or control worryin = Not at all Worrying too much about different things: 0 = Not at all Trouble relaxin = Not at all Being so restless that it is hard to sit still: 0 = Not at all Becoming easily annoyed or irritable: 0 = Not at all Feeling afraid as if something awful might happen: 0 = Not at all Total NIRU-7 score (0-4 normal; 5-9 mild; 10-14 moderate; 15-21 severe): 0 Source: Developed by Drs. Iban Quezada, Belinda Banda, Vinnie Greenfield and colleagues, with an educational ricky from [employer]. NIRU-7 Assessment Billing NIRU-7 Assessment Tool: NIRU-7 Assessment [id number] Review of Systems Const Denies chills, Denies fatigue, Denies headache(s) and Denies weight loss Eyes Denies change in vision, Denies diplopia and Denies eye pain ENT Denies vertigo, Denies dizziness, Denies headache(s) and Denies nasal discharge Card Denies chest pain, Denies rapid heart rate and Denies dyspnea on exertion Resp Denies chest congestion, Denies cough, Denies pain with cough and Denies dyspnea on exertion GI Denies abdominal pain, Denies hematochezia and Denies change in bowel habits Musc Denies myalgias, Denies arthralgias and Denies joint swelling Skin/Breast Denies lesions and Denies unusual bruising Neuro Denies vertigo, Denies dizziness, Denies headache(s) and Denies focal weakness Endo Denies fatigue Physical exam (Primary Care) Vital Signs: Last Vital Signs Pulse 98 05/31/24 12:49 BP 144/74 H 05/31/24 12:49 Pulse Ox 93 05/31/24 12:49 Oxygen Delivery Method Room Air 05/31/24 12:49 BMI result Body Mass Index 33.1 Tobacco/Smoking Status: Tobacco use Status Tobacco use date assessed 09/25/23 05/31/24 12:53 Patient Tobacco Use Status Former Tobacco user 05/31/24 12:53 Tobacco use type Cigarette 05/31/24 12:53 e-Cigarette/Vaping Use Never Used 05/31/24 12:53 PHQ-9: PHQ-9 Score PHQ-9: Total score 0 05/31/24 12:53 Depression Screening Interpretation: Negative Thrive Assessment: Date of Thrive Assessment Date Thrive assessed 09/25/23 05/31/24 12:53 Const General: cooperative, healthy appearing and no acute distress Orientation/consciousness: oriented to person, oriented to place and oriented to time HENMT Head: Yes normal to inspection, Yes normocephalic and Yes atraumatic Mouth: Normal oral and palatal mucosa present and tongue normal Throat: Yes posterior oropharynx normal and Yes uvula midline Eyes General: appearance normal, both eyes and all related structures Neck Neck: Yes normal visual inspection, Yes full ROM and Yes no lymphadenopathy Thyroid: Thyroid normal Carotids: normal carotid upstroke Chest Chest palpation & inspection: normal inspection of the chest Resp Effort & Inspection: normal respiratory effort and able to speak in complete sentences Auscultation: clear to auscultation bilaterally Cardio Jugular venous distension: no JVD Palpation: normal PMI Rate: regular rate Rhythm: regular rhythm Heart sounds: S1 normal heart sound present and S2 normal heart sound present GI Inspection: Yes normal to inspection Palpation (GI): Soft to palpation and No hepatosplenomegaly present Auscultation: normal bowel sounds General: Yes no CVA tenderness Back/Spine/Pelvis Back: no CVA tenderness Skin General skin exam: no rashes or lesions noted Neuro General: oriented to person, oriented to place and oriented to time Extrem General: Yes normal to inspection and Yes full ROM Coding Level of Care Code Est Pt Level 4 (04797) Diagnoses Preop exam for internal medicine Z01.818 Depression F32.A Gout M10.9 Hyperlipidemia E78.5 Hypertension I10 Additional Codes NIRU-7 Assessment Billing - NIRU-7 Assessment Tool: NIRU-7 Assessment 70246 ([id number]) Assessment & Plan Assessment & Plan (1) Preop exam for internal medicine: Code(s): Z01.818 - Encounter for other preprocedural examination Category: Medical Plan: low risk for cardiovascular complications; cleared for surgery (2) Depression: Code(s): F32.A - Depression, unspecified Category: Medical Plan: stable; same rx (3) Gout: Code(s): M10.9 - Gout, unspecified Category: Medical Plan: stable; same rx (4) Hyperlipidemia: Code(s): E78.5 - Hyperlipidemia, unspecified Category: Medical Plan: stable; same rx (5) Hypertension: Code(s): I10 - Essential (primary) hypertension Category: Medical Plan: stable; same rx
[2024-05-31 12:49] VITALS: BP 144/74; PULSE 98; O2SAT 93; BMI 33.1
== END 2024-05-31 14:15 | disposition home or self-care (01) ==
PROVIDERS: PCP Internal Medicine; Visit Provider Internal Medicine
DX: Z01.818 Encounter for other preprocedural examination (principal); F32.A Depression, unspecified; M10.9 Gout, unspecified; E78.5 Hyperlipidemia, unspecified; I10 Essential (primary) hypertension

== ENCOUNTER → 2024-05-31 12:44 | Outpatient (BNVA) | payer MEDICARE, SELFPAY | PROVIDERS: PCP Internal Medicine; Visit Provider Internal Medicine | DX: Z01.818 Encounter for other preprocedural examination (principal); H33.22 Serous retinal detachment, left eye; F32.A Depression, unspecified; M10.9 Gout, unspecified; E78.5 Hyperlipidemia, unspecified; I10 Essential (primary) hypertension | CPT/HCPCS: 96127; 99212 ==

== ENCOUNTER 2024-09-07 06:12 | Outpatient (REF) | payer MEDICARE, SELFPAY ==
[2024-09-07 06:21] LABS: MANUAL DIFF FLAG NO
[2024-09-07 06:58] LABS: Basophils Absolute Auto 0.1 X10*3/uL (0.0-0.2); Basophils Percent Auto 1.3 % (0-2); Eosinophils Absolute Auto 0.4 X10*3/uL (0.0-0.4); Eosinophils Percent Auto 5.8 % (0-4); Hematocrit 45.5 % (42.0-52.0); Hemoglobin 15.1 g/dl (14.0-18.0); Imm Gran Abs Auto 0.03 X10*3/uL (0.00-0.03); Imm Gran Pct Auto 0.4 % (0.0-0.4); Lymphocytes Absolute Auto 1.5 X10*3/uL (1.2-4.9); Lymphocytes Percent Auto 20.7 % (20-40); Mean Corpuscular HGB Conc 33.2 g/dl (31.0-36.0); Mean Corpuscular Hemoglobin 31.1 pg (27.0-33.0); Mean Corpuscular Volume 93.6 fL (80.0-98.0); Mean Platelet Volume 11.8 fL (9.4-12.4); Monocytes Absolute Auto 0.8 X10*3/uL (0.1-1.2); Monocytes Percent Auto 11.1 % (2-11); Neutrophils Absolute Auto 4.3 x10*3/uL (2.0-8.3); Neutrophils Percent Auto 60.7 % (45-73); Platelet Count 173 X10*3/uL (160-400); Red Blood Count 4.86 X10*6/uL (4.60-5.80); Red Cell Distribution Width 13.5 % (11.0-16.0)
[2024-09-07 07:29] LABS: Alanine Aminotransferase 20 U/L (0-40); Albumin Level 4.3 g/dL (3.5-5.0); Anion Gap 14 (12-20); Aspartate Amino Transferase 34 U/L (5-37); Bilirubin Total 0.9 mg/dL (0.0-1.0); Blood Urea Nitrogen 22 mg/dL (9-16); Calcium 9.6 mg/dL (8.4-10.2); Carbon Dioxide 30 mmol/L (22-29); Chloride 103 mmol/L (96-108); Cholesterol 179 mg/dL (<200); Estimated Glomerular Filt Rate > 60; Glucose Fasting 97 mg/dL (60-99); HDL Cholesterol 50 mg/dL (>40); LDL Cholesterol Calculated 91 mg/dL (<100); Potassium 3.9 mmol/L (3.3-5.1); Sodium 143 mmol/L (135-145); Total Protein 7.4 g/dL (6.5-8.0); Triglycerides 194 mg/dL (<150)
[2024-09-07 07:50] LABS: Alkaline Phosphatase 80 U/L (39-117); Thyroid Stimulating Hormone 2.36 uIU/mL (0.32-4.0)
== END 2024-09-07 06:13 | disposition home or self-care (01) ==
LOC: HO.LAB 06:12
PROVIDERS: PCP Internal Medicine; Visit Provider Internal Medicine
DX: Z13.0 Encounter for screening for diseases of the blood and blood-forming organs and certain disorders involving the immune mechanism (principal); Z13.29 Encounter for screening for other suspected endocrine disorder; Z13.220 Encounter for screening for lipoid disorders; Z13.9 Encounter for screening, unspecified
CPT/HCPCS: 36415; 80053; 80061; 84443; 85025

== ENCOUNTER 2024-09-08 08:42 | Outpatient (AMB) | payer MEDICARE, SELFPAY ==
--- NOTE | 2024-09-08 08:54 | MHC.PC.OV ---
Vital Signs 09/08/24 08:56 Height 6 ft 1.5 in Weight 250 lb 2 oz BMI 32.5 BP 120/78 Blood Pressure Location Lt brachial Position Sitting Pulse 65 Pulse Source Pulse Oximeter Temp 97.1 F Temp Source Skin Pulse Oximetry (%) 96 Oxygen Delivery Method Room Air Intake Visit Reasons: 4mth f/u Intake Note: Patient is here to follow up on HTN, HLD. Complaint of anxiety Tax Accounting Assistant Required: No Drying Oven Attendant: Not Required per policy Accompanied by: Self / Same As Patient Allergies No Known Allergies Allergy (Mild, Verified 09/08/24 08:56) NKA Medication List - Last Reconciled 09/08/24 by Francisco Mares MD allopurinol 300 mg PO DAILY amlodipine 10 mg PO DAILY aspirin 81 mg PO DAILY hydrochlorothiazide 25 mg PO DAILY lovastatin 80 mg (2 x 40 mg) PO DAILY sertraline 100 mg PO DAILY Tobacco use date assessed: 09/08/24 Fall risk assessment: No Falls in past year Last assessed Fall Risk: 09/08/24 Dental Screening Dental Screen Date: 09/08/24 Did you have a dental visit in the last 12 months?: No Did you have a dental problem in the last 6 months where you did not have access to dental care?: No Was dental information given to patient?: No HPI 4mth f/u HPI Details HTN on Rx; doing well; has apnea and daytime sleepiness PFSH Medical History (Updated 05/13/23 @ 10:59 by Francisco Mares MD) Gout Hypertension Elevated cholesterol HTN (hypertension) Depression Screening for prostate cancer Screening for colon cancer Screening for diabetes mellitus Dyslipidemia Mood disorder Surgical History (Updated 09/08/24 @ 09:01 by ISIDRA Lewis) History of eye surgery History of total right knee replacement Hx of cataract extraction History of colonoscopy History of knee replacement History of rectal polypectomy History of hydrocelectomy History of appendectomy Family History Father Prostate cancer Hypertension Mother Hypertension Pancreatic cancer Family/Other Diabetes Sister Mental health disorder Social History Housing: House Alcohol intake: current Alcohol intake frequency: a few times a week Alcohol type: beer Patient Tobacco Use Status: Former Tobacco user Tobacco use type: Cigarette e-Cigarette/Vaping Use: Never Used Second Hand Smoke Exposure: Yes service: No Current occupational status: retired Cognitive needs: No Hearing needs: No Vision needs: Yes (Glasses) Questionnaire PHQ-9 Over the last 2 weeks, how often have you been bothered by any of the following problems? 1. Little interest or pleasure in doing things: not at all 2. Feeling down, depressed, or hopeless: not at all 3. Trouble falling or staying asleep, or sleeping too much: more than half the days 4. Feeling tired or having little energy: more than half the days 5. Poor appetite or overeating: not at all 6. Feeling bad about yourself - or that you are a failure or have let yourself or your family down: not at all 7. Trouble concentrating on things, such as reading the newspaper or watching television: not at all 8. Moving or speaking so slowly that other people could have noticed. Or the opposite - being so fidgety or restless that you have been moving around a lot more than usual: not at all 9. Thoughts that you would be better off or of hurting yourself in some way: not at all Total score: 4 Depression Screening Interpretation: Positive Depression Screening Done: Yes Source: Developed by Drs. Iban Quezada, Belinda Banda, Vinnie Greenfield and colleagues, with an educational ricky from [employer]. Thrive Questionnaire Date Thrive assessed: 09/08/24 I am a: Patient What is your living situation today?: I have a steady place to live Within the past 12 months, did the food you bought not last and you didn't have the money to get more?: Never true Within the past 12 months, did you worry whether your food would run out before you got money to buy more?: Never true Do you have trouble paying for medicines?: No Do you have trouble getting transportation to medical appointments?: No Do you have trouble paying your heating and electricity bill?: No Do you have trouble taking care of your child, family member or friend?: No Do you have trouble with day-to-day activities such as bathing, preparing meals, shopping, managing finances, etc.?: No Are you currently unemployed and looking for a job?: No Are you interested in more education?: No Please select the resources that you would like help with: None Currently or been in a relationship where the following occur: No concerns reported THRIVE Score: 0 AUDIT C Alcohol Use Questionnaire (AUDIT-C) 1. How often do you have a drink containing alcohol?: 2-3 times a week 2. How many drinks containing alcohol do you have on a typical day when you are drinking?: 1 or 2 Total Score: 3 NIRU-7 AMB Questionnaire NIRU-7 Date NIRU - 7 assessed: 09/08/24 Feeling nervous, anxious, or on edge: 1 = Several days Not being able to stop or control worryin = Several days Worrying too much about different things: 1 = Several days Trouble relaxin = Several days Being so restless that it is hard to sit still: 1 = Several days Becoming easily annoyed or irritable: 2 = More than half the days Feeling afraid as if something awful might happen: 1 = Several days Total NIRU-7 score (0-4 normal; 5-9 mild; 10-14 moderate; 15-21 severe): 8 Source: Developed by Drs. Iban Quezada, Belinda Banda, Vinnie Greenfield and colleagues, with an educational ricky from [employer]. Review of Systems Const Denies chills, Denies headache(s) and Denies weight loss ENT Denies headache(s) Card Denies chest pain, Denies syncope, Denies irregular heart rhythm and Denies dyspnea Resp Denies chest congestion, Denies cough and Denies dyspnea GI Denies abdominal pain, Denies change in stool character, Denies nausea and Denies vomiting Musc Denies deformity and Denies joint swelling Neuro Denies syncope and Denies headache(s) Physical exam (Primary Care) Vital Signs: Last Vital Signs Temp 97.1 F 09/08/24 08:56 Pulse 65 09/08/24 08:56 BP 120/78 09/08/24 08:56 Pulse Ox 96 09/08/24 08:56 Oxygen Delivery Method Room Air 09/08/24 08:56 BMI result Body Mass Index 32.5 Tobacco/Smoking Status: Tobacco use Status Tobacco use date assessed 09/08/24 09/08/24 09:04 Patient Tobacco Use Status Former Tobacco user 09/08/24 09:04 Tobacco use type Cigarette 09/08/24 09:04 e-Cigarette/Vaping Use Never Used 09/08/24 09:04 PHQ-9: PHQ-9 Score PHQ-9: Total score 4 09/08/24 09:04 Depression Screening Interpretation: Positive Thrive Assessment: Date of Thrive Assessment Date Thrive assessed 09/08/24 09/08/24 09:04 Currently or been in a relationship where the following occur: No concerns reported Const General: cooperative, comfortable, no acute distress and alert Neck Neck: Yes no lymphadenopathy Thyroid: Thyroid normal Resp Effort & Inspection: normal respiratory effort Auscultation: clear to auscultation bilaterally Percussion: percussion normal Cardio Jugular venous distension: no JVD Palpation: normal PMI Rate: regular rate Rhythm: regular rhythm Heart sounds: S1 normal heart sound present and S2 normal heart sound present GI Inspection: Yes normal to inspection Palpation (GI): No hepatosplenomegaly present Skin General skin exam: no rashes or lesions noted Extrem General: Yes no clubbing, cyanosis or edema Coding Level of Care Code Est Pt Level 3 (18170) Diagnoses Hypertension I10 Assessment & Plan Assessment & Plan (1) Hypertension: Code(s): I10 - Essential (primary) hypertension Category: Medical Plan: stable; same rx; EKG and sleep study for apnea Orders: Orders ECG 12 lead EKG Today R06.81 - Apnea, not elsewhere classified RT home sleep study Today R06.81 - Apnea, not elsewhere classified
[2024-09-08 08:56] VITALS: BP 120/78; PULSE 65; TEMP 36.2; O2SAT 96; BMI 32.5
--- OUTSIDE RECORDS SUMMARY | 2024-09-08 09:29 | XMS_ITS | Patient Health Record ---
Author Organization [facility] Address [address] [place] [address] Care Team Providers Care Pumpman Name Role Phone Francisco Mares MD Primary Care Provider Minesh Bueno Jr Unavailable ALLERGIES No Known Allergies REASON FOR REFERRAL No Information MEDICATIONS Medication SIG (Take, Route, Frequency, Duration) Notes Start Date End Date Status hydroCHLOROthiazide 25 MG 1 tablet Orall y Once a day Active OsmoPrep 1.102-0.398 GM 32 tablets Orall y over two days as directed for 2 day(s) 06/06/2021 Active Sertraline HCl 100 MG 1 tablet Orally On ce a day Active Lovastatin Active Allopurinol 300 MG 1 tablet Orally Once a day Active Colyte with Flavor Packs 240 GM As direc adilene Orally Over the specified time. for 1 day(s) 05/16/2014 Active Aspir-81 81 MG 1 tablet Orally Once a day Active amLODIPine Besylate 10 MG 1 tablet Orall y Once a day Active IMMUNIZATIONS Vaccine Route Administration Date Status Comme nts Influenza Unknown 05/11/2020 Administered SOCIAL HISTORY Sex Assigned At : Social History Observation Description Sex Assigned At Unknown Alcohol Screen Question Answer Notes Did you have a drink contain ing alcohol in the past year? Yes How often did you have a dri nk containing alcohol in the past year? 2 to 3 times a week (3 points) How many drinks did you have on a typical day when you were drinking in the past year? 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 (Z79.899) Active confirmed [id number] PLAN OF TREATMENT Future Test Test Name Order Date COLONOSCOPY 05/16/2014 COLONOSCOPY 06/06/2021 Insurance Providers Payer Name Payer Address Payer Phone Subscriber Number Group Number Insured Name Patient Relationship to Insured Coverage Start Date Coverage End Date MED[place]ARE OF [place] [address] [facility] [address] [id number] SHELBY SMITH Self - patient is the insured MEDEX ATTN CLAIMS [address] [place] [address] [id number] SHELBY SMITH Self - patient is the insured MEDICAL (GENERAL) HISTORY Medical History History ICD Code Depression hypertension Colon polyps, last colonoscopy 01/23, fiv e-year followup recommended. Elevated cholesterol Surgical History Surgery Date(Month/Year) knee surgery appendectomy knee surgery right 10/2020 cateracts 2020
== END 2024-09-08 10:08 | disposition home or self-care (01) ==
PROVIDERS: PCP Internal Medicine; Visit Provider Internal Medicine
DX: I10 Essential (primary) hypertension (principal)

== ENCOUNTER → 2024-09-08 08:42 | Outpatient (REF) | payer MEDICARE, SELFPAY ==
--- NOTE | 2024-09-08 09:37 | ECG_ITS ---
Test Reason : apnea Blood Pressure : */* mmHG Vent. Rate : 51 BPM Atrial Rate : 51 BPM P-R Int : 154 ms QRS Dur : 98 ms QT Int : 434 ms P-R-T Axes : * -17 -44 degrees QTcB Int : 400 ms Sinus bradycardia with frequent , and consecutive Premature ventricular complexes Abnormal ECG When compared with ECG of 13-May-2023 10:28, No significant changes seen Referred By: Francisco Mares Electronically Signed By: DARWIN GRAY
== END ==
LOC: HO.CARD 08:42
PROVIDERS: PCP Internal Medicine; Visit Provider Internal Medicine
DX: R06.81 Apnea, not elsewhere classified (principal); I10 Essential (primary) hypertension
CPT/HCPCS: 93005; 96127; 99212

== ENCOUNTER → 2024-09-08 09:37 | Outpatient (BNV) | payer MEDICARE, SELFPAY | PROVIDERS: PCP Internal Medicine; Visit Provider Internal Medicine | DX: I49.3 Ventricular premature depolarization (principal); R00.1 Bradycardia, unspecified | CPT/HCPCS: 93010 ==

== ENCOUNTER → 2024-11-10 07:47 | Outpatient (REF) | payer MEDICARE, SELFPAY ==
--- OUTSIDE RECORDS SUMMARY | 2024-11-10 07:50 | XMS_ITS | Patient Health Record ---
Author Organization [facility] Address [address] [place] [address] Care Team Providers Care Perforator Operator [employer] Name Role Phone Francisco Mares MD Primary Care Provider Minesh Bueno Jr Unavailable Allergies No Known Allergies Reason For Referral No Information Medications Medication SIG (Take, Route, Frequency, Duration) Notes [...] tablet Orall y Once a day Active Immunizations Vaccine Route Administration Date Status Comme nts Influenza Unknown 05/11/2020 Administered Social History Alcohol Screen Question Answer Notes Did you [...] drinks (2 points) Points 5 Interpretation Positive Section Notes: beer drinker Problems Problem Type SNOMED Code ICD Code Onset Dates Problem Status W/U Status Risk Notes Problem 763867407 Colon cancer screening (Z12.11) Active confirmed Problem 552168313 Personal history of colonic polyps (Z86.010) Active confirmed Problem 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) Active confirmed Problem [id number] residential current use of diuretic (Z79.899) Active confirmed Plan Of Treatment Future Test Test Name Order Date COLONOSCOPY 05/16/2014 COLONOSCOPY 06/06/2021 Insurance Providers Payer Name Payer Address Payer Phone Subscriber Number Group Number Insured Name Patient Relationship to Insured Coverage Start Date Coverage End Date [place]ARE OF [place] [address] [place] [address] [id number] SHELBY SMITH Self - patient is the insured MEDEX ATTN CLAIMS [address] [place] [address] [id number] SHELBY SMITH Self - patient is the insured Medical (General) History Medical History History ICD Code Depression hypertension Colon polyps, last colonoscopy 01/23, fiv e-year followup recommended. Elevated cholesterol Surgical History Surgery Date(Month/Year) knee surgery appendectomy knee surgery right 10/2020 cateracts 2020
== END ==
LOC: HO.SL 07:47
PROVIDERS: PCP Internal Medicine; Visit Provider Internal Medicine
DX: G47.10 Hypersomnia, unspecified (principal)
CPT/HCPCS: 95806

== ENCOUNTER → 2024-11-10 07:56 | Outpatient (BNV) | payer MEDICARE, SELFPAY | PROVIDERS: PCP Internal Medicine; Visit Provider Internal Medicine | DX: G47.33 Obstructive sleep apnea (adult) (pediatric) (principal) | CPT/HCPCS: 95806 ==

== ENCOUNTER 2024-12-29 15:37 | Outpatient (AMB) | payer MEDICARE, SELFPAY ==
--- OUTSIDE RECORDS SUMMARY | 2024-12-29 15:39 | XMS_ITS | Patient Health Record ---
Author Organization [facility] Address [address] [place] [address] Care Team Providers Care Dental Receptionist Name Role Phone Francisco Mares MD Primary [...] Problem Status W/U Status Risk Notes Problem 291141452 Colon cancer screening (Z12.11) Active confirmed Problem 604221958 Personal history of colonic polyps (Z86.010) Active confirmed Problem 366965006069269 alf (current) use of aspirin (Z79.82) Active confirmed Problem 61604881689775900 alf current use of diuretic (Z79.899) Active confirmed Plan Of Treatment Future Test Test Name Order Date COLONOSCOPY 05/16/2014 COLONOSCOPY 06/06/2021 Insurance Providers Payer Name Payer Address Payer Phone Subscriber Number Group Number Insured Name Patient Relationship to Insured Coverage Start Date Coverage End Date [place] [address] [place] [address] [id number] SHELBY SMITH Self - patient is the insured MEDEX ATTN CLAIMS [address] [place] [address] [id number] SHELBY SMITH Self - patient is the insured Medical (General) History Medical History History ICD Code Depression hypertension Colon polyps, last colonoscopy 01/23, fiv e-year followup recommended. Elevated cholesterol Surgical History Surgery Date(Month/Year) knee surgery appendectomy knee surgery right 10/2020 cateracts 2020
[2024-12-29 15:41] VITALS: BP 130/70; PULSE 57; O2SAT 95; BMI 32.3
--- NOTE | 2024-12-29 15:41 | MHC.PC.OV ---
Vital Signs 12/29/24 15:41 Height 6 ft 1.5 in Weight 248 lb 8 oz BMI 32.3 BP 130/70 Blood Pressure Location Lt brachial Position Sitting Pulse 57 Pulse Source Pulse Oximeter Pulse Oximetry (%) 95 Oxygen Delivery Method Room Air Intake Visit Reasons: LALITO Suzan/ go over sleep study Store Shopper Required: No Accompanied by: Self / Same As Patient Allergies No Known Allergies Allergy (Mild, Verified 12/29/24 16:08) NKA Medication List - Last Reconciled 12/29/24 by Mohit Montanez MD allopurinol 300 mg PO DAILY amlodipine 10 mg PO DAILY aspirin 81 mg PO DAILY hydrochlorothiazide 25 mg PO DAILY lovastatin 80 mg (2 x 40 mg) PO DAILY sertraline 100 mg PO DAILY Tobacco use date assessed: 12/29/24 Fall risk assessment: 2 + Falls in past year Last assessed Fall Risk: 12/29/24 Dental Screening Dental Screen Date: 12/29/24 Did you have a dental visit in the last 12 months?: No Did you have a dental problem in the last 6 months where you did not have access to dental care?: No Was dental information given to patient?: No HPI LALITO Suzan/ go over sleep study HPI Details Patient comes in today for his follow up visit - is transferring over from Dr. Mares, who retired from the practice a couple of months ago Patient states that he feels okay States that he had a home sleep study done last month but he has not heard back from anyone as to how he did on his home sleep study He denies any headaches or dizziness Denies any chest pains, no increased SOB No nausea/vomiting, no abdominal pain No change in bowel habits noted [facility] Medical History (Updated 01/03/25 @ 23:47 by Mohit Montanez MD) Pure hypercholesterolemia Essential hypertension Gout Hypertension Elevated cholesterol HTN (hypertension) Depression Screening for prostate cancer Screening for colon cancer Screening for diabetes mellitus Dyslipidemia Mood disorder Surgical History History of eye surgery History of total right knee replacement Hx of cataract extraction History of colonoscopy History of knee replacement History of rectal polypectomy History of hydrocelectomy History of appendectomy Family History Father Prostate cancer Hypertension Mother Hypertension Pancreatic cancer Family/Other Diabetes Sister Mental health disorder Social History Housing: House Alcohol intake: current Alcohol intake frequency: a few times a week Alcohol type: beer Patient Tobacco Use Status: Former Tobacco user Tobacco use type: Cigarette e-Cigarette/Vaping Use: Never Used Second Hand Smoke Exposure: Yes service: No Current occupational status: retired Cognitive needs: No Hearing needs: No Vision needs: Yes (Glasses) Questionnaire PHQ-9 Over the last 2 weeks, how often have you been bothered by any of the following problems? 1. Little interest or pleasure in doing things: not at all 2. Feeling down, depressed, or hopeless: several days 3. Trouble falling or staying asleep, or sleeping too much: nearly every day 4. Feeling tired or having little energy: nearly every day 5. Poor appetite or overeating: nearly every day 6. Feeling bad about yourself - or that you are a failure or have let yourself or your family down: not at all 7. Trouble concentrating on things, such as reading the newspaper or watching television: nearly every day 8. Moving or speaking so slowly that other people could have noticed. Or the opposite - being so fidgety or restless that you have been moving around a lot more than usual: nearly every day 9. Thoughts that you would be better off or of hurting yourself in some way: not at all Total score: 16 Depression Screening Interpretation: Positive Depression Screening Follow-up: Existing condition and In treatment Depression Screening Done: Yes 05502 - PHQ-9 Billing: Yes Source: Developed by Drs. Iban Quezada, Belinda Banda, Vinnie Greenfield and colleagues, with an educational ricky from [employer]. Thrive Questionnaire Date Thrive assessed: 12/29/24 I am a: Patient What is your living situation today?: I choose not to answer this question Within the past 12 months, did the food you bought not last and you didn't have the money to get more?: Never true Within the past 12 months, did you worry whether your food would run out before you got money to buy more?: Never true Do you have trouble paying for medicines?: No Do you have trouble getting transportation to medical appointments?: No Do you have trouble paying your heating and electricity bill?: No Do you have trouble taking care of your child, family member or friend?: No Do you have trouble with day-to-day activities such as bathing, preparing meals, shopping, managing finances, etc.?: No Are you currently unemployed and looking for a job?: No Are you interested in more education?: No Please select the resources that you would like help with: None Currently or been in a relationship where the following occur: No concerns reported THRIVE Score: 0 AUDIT C Alcohol Use Questionnaire (AUDIT-C) 1. How often do you have a drink containing alcohol?: 2-3 times a week 2. How many drinks containing alcohol do you have on a typical day when you are drinking?: 1 or 2 3. How often do you have six or more drinks on one occasion?: Never Total Score: 3 Score Reviewed/Action Taken: Yes NIRU-7 AMB Questionnaire NIRU-7 Date NIRU - 7 assessed: 12/29/24 Feeling nervous, anxious, or on edge: 1 = Several days Not being able to stop or control worryin = Several days Worrying too much about different things: 1 = Several days Trouble relaxin = Several days Being so restless that it is hard to sit still: 1 = Several days Becoming easily annoyed or irritable: 2 = More than half the days Feeling afraid as if something awful might happen: 1 = Several days Total NIRU-7 score (0-4 normal; 5-9 mild; 10-14 moderate; 15-21 severe): 8 Source: Developed by Drs. Iban Quezada, Belinda Banda, Vinnie Greenfield and colleagues, with an educational ricky from [employer]. Review of Systems Const Denies chills, Reports fatigue, Denies fever(s) and Denies headache(s) ENT Denies dysphagia, Denies dizziness, Denies otalgia, Denies headache(s), Denies neck pain, Denies odynophagia and Denies sore throat Card Denies chest pain, Denies palpitations and Denies dyspnea Resp Denies chest congestion, Denies cough and Denies dyspnea GI Denies abdominal pain, Denies constipation, Denies dysphagia, Denies heartburn, Denies diarrhea, Denies nausea, Denies odynophagia and Denies vomiting Denies difficulty urinating, Denies dysuria, Denies nocturia and Denies urinary frequency Musc Denies back pain and Denies neck pain Skin/Breast Denies rash Neuro Denies dizziness and Denies headache(s) Endo Reports fatigue and Denies palpitations Physical exam (Primary Care) Vital Signs: Last Vital Signs Pulse 57 12/29/24 15:41 BP 130/70 12/29/24 15:41 Pulse Ox 95 12/29/24 15:41 Oxygen Delivery Method Room Air 12/29/24 15:41 BMI result Body Mass Index 32.3 Tobacco/Smoking Status: Tobacco use Status Tobacco use date assessed 12/29/24 12/29/24 15:45 Patient Tobacco Use Status Former Tobacco user 12/29/24 15:45 Tobacco use type Cigarette 12/29/24 15:45 e-Cigarette/Vaping Use Never Used 12/29/24 15:45 PHQ-9: PHQ-9 Score PHQ-9: Total score 16 12/29/24 16:19 Depression Screening Interpretation: Positive Depression Screening Follow-up: Existing condition and In treatment Thrive Assessment: Date of Thrive Assessment Date Thrive assessed 12/29/24 12/29/24 15:45 Currently or been in a relationship where the following occur: No concerns reported Const General: no acute distress and alert HENMT Ears: TM's normal bilaterally and EAC's normal Throat: Yes posterior oropharynx normal and Yes tonsils normal (no TP congestion) Neck Neck: Yes supple and No lymphadenopathy Thyroid: Thyroid normal Resp Auscultation: clear to auscultation bilaterally, no rales and no wheezes Cardio Rate: regular rate Rhythm: regular rhythm Heart sounds: no murmurs GI Palpation (GI): Soft to palpation and nontender Auscultation: normal bowel sounds General: Yes no CVA tenderness Back/Spine/Pelvis Back: no CVA tenderness Thoracic/Lumbar Spine: No lumbar spinal tenderness Skin Rashes: no rashes Extrem General: Yes no clubbing, cyanosis or edema Coding Level of Care Code Est Pt Level 4 (56806) Diagnoses Essential hypertension I10 Pure hypercholesterolemia E78.00 Chronic gout without tophus, unspecified cause, unspecified site M1A.9XX0 Gout site: unspecified site Gout etiology: unspecified cause Chronicity: chronic Presence of tophus: without tophus Severe obstructive sleep apnea in adult G47.33 Episode of recurrent major depressive disorder, unspecified depression episode severity F33.9 Depression Type: major depressive disorder Major depression recurrence: recurrent Active/Remission status: currently active Major depression episode severity: unspecified Additional Codes PHQ-9 - 73951 - PHQ-9 Billing: Yes ([id number]) Assessment & Plan Assessment & Plan (1) Essential hypertension: Code(s): I10 - Essential (primary) hypertension Category: Medical Plan: Reinforced low sodium diet - goal is systolic BP of at least 130 to 140 mm or less Continue Amlodipine 10 mg QD and HCTZ 25 mg QD Patient is reminded to continue monitoring his blood pressure regularly (2) Pure hypercholesterolemia: Code(s): E78.00 - Pure hypercholesterolemia, unspecified Category: Medical Plan: Reinforced low cholesterol diet Patient does not have any follow up labs done recently Continue Lovastatin 80 mg QD Will recheck his labs and fasting lipids in a few months for follow up (3) Gout: Code(s): M10.9 - Gout, unspecified Category: Medical Qualifiers: Gout site: unspecified site Gout etiology: unspecified cause Chronicity: chronic Presence of tophus: without tophus Qualified Code(s): M1A.9XX0 - Chronic gout, unspecified, without tophus (tophi) Plan: Patient denies any acute flare up of gout lately Reinforced low purine diet Will recheck patient's serum uric acid level in a couple of months for follow up Continue Allopurinol 300 mg QD (4) Severe obstructive sleep apnea in adult: Code(s): G47.33 - Obstructive sleep apnea (adult) (pediatric) Category: Medical Plan: Patient tested positive for severe YESICA on a home sleep study done last month Will refer him for an in-lab sleep study for CPAP titration Will also send him for an echocardiogram for further evaluation Will refer him to Sleep Medicine as well for further management (5) Depression: Code(s): F32.A - Depression, unspecified Category: Medical Qualifiers: Depression Type: major depressive disorder Major depression recurrence: recurrent Active/Remission status: currently active Major depression episode severity: unspecified Qualified Code(s): F33.9 - Major depressive disorder, recurrent, unspecified Plan: Continue Sertraline 100 mg QD Follow up with psychiatry as scheduled Plan Follow up as scheduled in February 2025 Orders: Orders CA echo transthoracic complete 12/29/24 G47.33 - Obstructive sleep apnea (adult) (pediatric), R06.09 - Other forms of dyspnea RT PSG in-lab sleep study 12/29/24 G47.33 - Obstructive sleep apnea (adult) (pediatric) Complete Blood Count Auto Diff 02/12/25 D64.9 - Anemia, unspecified Comprehensive [place]. Panel Fast 02/12/25 E78.00 - Pure hypercholesterolemia, unspecified Lipid Panel 02/12/25 E78.00 - Pure hypercholesterolemia, unspecified TSH reflex Free T4 02/12/25 E78.00 - Pure hypercholesterolemia, unspecified UA CC w/rflx Micro + Cult 02/12/25 R30.0 - Dysuria Uric Acid 02/12/25 M10.9 - Gout, unspecified Referrals Sleep Medicine Referral G47.33 - Obstructive sleep apnea (adult) (pediatric)
== END 2024-12-29 16:22 | disposition home or self-care (01) ==
LOC: HO.HMCH 15:37
PROVIDERS: PCP Internal Medicine; Visit Provider Internal Medicine
DX: I10 Essential (primary) hypertension (principal); E78.00 Pure hypercholesterolemia, unspecified; M1A.9XX0 Chronic gout, unspecified, without tophus (tophi); G47.33 Obstructive sleep apnea (adult) (pediatric); F33.9 Major depressive disorder, recurrent, unspecified

== ENCOUNTER → 2024-12-29 15:37 | Outpatient (BNVA) | payer MEDICARE, SELFPAY | PROVIDERS: PCP Internal Medicine; Visit Provider Internal Medicine | DX: I10 Essential (primary) hypertension (principal); E78.00 Pure hypercholesterolemia, unspecified; M1A.9XX0 Chronic gout, unspecified, without tophus (tophi); G47.33 Obstructive sleep apnea (adult) (pediatric); F33.9 Major depressive disorder, recurrent, unspecified | CPT/HCPCS: 96127; 99212 ==

== ENCOUNTER → 2025-01-26 08:47 | Outpatient (REF) | payer MEDICARE, SELFPAY ==
--- NOTE | 2025-01-26 08:51 | CA_ITS ---
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 Normal LV ejection fraction 55-60% with mild LVH with grade 1 diastolic dysfunction 2. Mildly dilated left atrium 3. Cardiac valvular Dopplers within normal limits 4. Mildly dilated ascending aorta at 4.1 cm 5. Normal RV systolic pressure 6. No pericardial effusion Findings Left Ventricle Normal left ventricular size and systolic function. There is mildly increased left ventricular wall thickness. The visually estimated ejection fraction is between 55-60%. Spectral Doppler is indicative of an impaired relaxation filling pattern. E/E prime ratio is <8, consistent with normal filling pressures. Evidence suggests grade I (mild) diastolic dysfunction. Right Ventricle Normal right ventricular cavity size and systolic function. Atria The left atrium is mildly dilated. There is no evidence of interatrial shunt. The right atrium is normal in size. Aortic Valve Normal aortic valve structure and function. There is no aortic valve stenosis. There is no aortic valve regurgitation. Mitral Valve Normal mitral valve structure and function. There is trace mitral valve regurgitation. There is no mitral valve stenosis. Pulmonic Valve The pulmonic valve is likely normal. There is trace to mild pulmonic valve regurgitation. Tricuspid Valve Normal tricuspid valve structure. There is trace tricuspid valve regurgitation. The right ventricular systolic pressure is normal. The right ventricular systolic pressure is 28 mmHg. Normal right atrial pressure. There is no evidence of pulmonary hypertension. Great Vessels The pulmonary artery was not well visualized. There is mild dilatation of the ascending aorta. Venous The inferior vena cava is normal in size and collapses greater than 50% with inspiration. Pericardium/Pleural There is no evidence of pericardial effusion. Prior Study Comparison No prior study available for comparison. Measurements 2D Linear Measurements IVSd: 1.26 0.6-0.9/0.6-1.0 cm LVIDd: 5.49 3.9-5.3/4.2-5.9 cm LVIDd Index: 2.31 2.4-3.2/2.2-3.1 cm/m2 LVIDs: 3.13 2.0-3.6 cm LVPWd: 1.20 0.7-1.1 cm Ao Root: 3.60 2.1-3.5 cm LA Diam: 4.20 2.7-3.8/3.0-4.0 cm LAIDs Index: 1.76 1.5-2.3 cm/m2 LV Mass: 350.47 67-162/88-224 g LV Mass Index: 147.26 43-95/49-115 g/m2 LVOT Diam: 2.60 3.0+(-)1.3 cm 2D Systolic Function EF 4C: 59.10 >55% EF 2C: 53.40 >55% EF BiP: 57.10 >55% Mitral Valve MV Pk E: 0.61 MV PK A: 0.96 MV Decel Time: 214.00 E/A: 0.60 E'Lateral: 7.07 E'Medial: 6.96 E/E' Med: 8.70 E/E' Lat: 8.60 PHT: 63.00 MVA PHT: 3.49 Decel [place]: 2.84 Aortic Valve AoV Pk Guille: 1.43 AoV Mn Guille: 0.82 AoV VTI: 0.30 AoV Pk Grad: 8.00 Aov Mn Grad: 3.00 LYNN Cont.VTI: 3.04 LVOT LVOT Pk Guille: 0.73 LVOT Mn Guille: 0.47 LVOT VTI: 0.17 LVOT Pk Grad: 2.00 LVOT Mn Grad: 1.00 LVOT Diam: 2.60 LVOT Area: 5.31 Diastolic Function MV Pk E: 0.61 MV Pk A: 0.96 E/A: 0.60 E'Medial: 6.96 E/E' Med: 8.70 E' Laterial: 7.07 E/E' Lat: 8.60 Right Ventricle TAPSE (mm): 37.00 TVS' Guille: 19.00 Tricuspid Valve TR Pk Guille: 2.51 TR Pk Grad: 25.00 RA Press: 3.00 RVSP: 28.00 Great Vessels Aorta Ao Root-2D: 3.60 2.0-3.7 cm Ao Asc: 4.10 2.1-3.4 cm Pulmonary Valve PV Pk Guille: 1.16 Peak PV Grad: 5.00 Updated in Other Vendor System with Status of Final Krishan Tyler MD electronically signed on 01/26/2025 1:33:43 PM with status of Final
--- OUTSIDE RECORDS SUMMARY | 2025-01-26 09:17 | XMS_ITS | Patient Health Record ---
[facility] Ketan christie [place] Address [address] [facility] [place] [place] [address] Care Team Providers Care Public Utilities Sales Representative Name Role Phone Francisco Mares MD Primary Care Provider Unavaila Jabier Kendrick Unavailable [phone] Reason For Referral No Information Medications Medication SIG (Take, Route, Frequency, Duration) Notes Start Date End Date Status amLODIPine Besylate 10 MG 1 tablet Orall y Once a day for 30 day(s) Active Lovastatin 40 MG 2 tablets Orally Onc e a day Active Allopurinol 300 MG 1 tablet Orally Once a day for 30 day(s) Active hydroCHLOROthiazide 25 MG 1 tablet in th e morning Orally Once a day for 30 day(s) Active Sertraline HCl 100 MG 1 tablet Orally On ce a day for 30 day(s) Active Social History Tobacco Use: Social History Observation Description Date Details (start date - stop date) Former Smoker NA - NA Tobacco Use/Smoking Question Answer Notes Are you a: former smoker Additional Findings: Tobacco Non-User Current no n-smoker Alcohol Screen Question Answer Notes Did you have a drink containing alcohol in the p ast year? Yes Points 0 Interpretation Negative Tobacco use other than smoking: Question Answer Notes Are you an other tobacco user? No Problems Problem Type SNOMED Code ICD Code Onset Dates Problem Status W/U Status Risk Notes Problem Plantar wart (22171699) Plantar wart (B07.0) Active confirmed Plan Of Treatment Pending Test Test Name Order Date [id number] Destruction, 1-14 03/02/2019 Insurance Providers Payer Name Payer Address Payer Phone Subscriber Number Group Number Insured Name Patient Relationship to Insured Coverage Start Date Coverage End Date Medicare National Govt Svcs Inc [address] [place] [address] [id number] Lee Ray Self - patient is the insured [employer] [facility] [address] [place] [address] [id number] Lee Ray Self - patient is the insured Medical (General) History Medical History History ICD Code Arthritis Back,Hip,and Knee pain Depression Gout High blood pressure Measles Chicken pox Joint implants/screws CAD Surgical History Surgery Date(Month/Year) Left Knee replacement 2008
== END ==
LOC: HO.CARD 08:47
PROVIDERS: PCP Internal Medicine; Visit Provider Internal Medicine
DX: I51.7 Cardiomegaly (principal); I77.810 Thoracic aortic ectasia; I51.9 Heart disease, unspecified; R06.09 Other forms of dyspnea; G47.33 Obstructive sleep apnea (adult) (pediatric)
CPT/HCPCS: 93306

== ENCOUNTER → 2025-01-26 08:51 | Outpatient (BNV) | payer MEDICARE, SELFPAY | PROVIDERS: PCP Internal Medicine; Visit Provider Internal Medicine Cardiovascular Disease | DX: I51.89 Other ill-defined heart diseases (principal); I37.1 Nonrheumatic pulmonary valve insufficiency; I77.810 Thoracic aortic ectasia; I51.7 Cardiomegaly | CPT/HCPCS: 93306 ==

== ENCOUNTER 2025-02-16 06:12 | Outpatient (REF) | payer MEDICARE, SELFPAY ==
--- OUTSIDE RECORDS SUMMARY | 2025-02-16 06:14 | XMS_ITS | Patient Health Record ---
[facility] Organization [facility] Ketan christie [place] Address [address] [place] [address] Care Team Providers Care Padding Machine Operator Name Role Phone Francisco Mares MD Primary Care Provider Unavaila Jabier Kendrick Unavailable [phone] Reason For Referral No Information Medications Medication SIG (Take, Route, Frequency, Duration) Notes Start Date End Date Status amLODIPine Besylate 10 MG 1 tablet Orall y Once a day; Duration: 30 day(s) Active Lovastatin 40 MG 2 tablets Orally Onc e a day Active Allopurinol 300 MG 1 tablet Orally Once a day; Duration: 30 day(s) Active hydroCHLOROthiazide 25 MG 1 tablet in th e morning Orally Once a day; Duration: 30 day(s) Active Sertraline HCl 100 MG 1 tablet Orally On a day; Duration: 30 day(s) Active Social History Tobacco Use: [...] W/U Status Risk Notes Problem Plantar wart (76263338) Plantar wart (B07.0) Active confirmed Plan Of Treatment Pending Test Test Name Order Date [id number] Destruction, 1-14 03/02/2019 Insurance Providers Payer Name Payer Address Payer Phone Subscriber Number Group Number Insured Name Patient Relationship to Insured Coverage Start Date Coverage End Date Medicare National Govt [facility] [address] [place] [address] [id number] Lee Ray Self - patient is the insured [email or web address] [facility] [address] [place] [address] [phone] [id number] Lee Ray Self - patient is the insured Medical (General) History Medical History History ICD Code Arthritis Back,Hip,and Knee pain Depression Gout High blood pressure Measles Chicken pox Joint implants/screws CAD Surgical History Surgery Date(Month/Year) Left Knee replacement 2008
--- OUTSIDE RECORDS SUMMARY | 2025-02-16 06:14 | XMS_ITS | Patient Health Record ---
Author Organization [facility] Address [address] [place] [address] Care Team Providers Care Executive Wellness Programs Director Name Role Phone Francisco Mares MD Primary [...] Problem Status W/U Status Risk Notes Problem [id number] Colon cancer screening (Z12.11) Active confirmed Problem 528786408 Personal history of colonic polyps (Z86.010) Active confirmed Problem [id number] [facility] (current) use of aspirin (Z79.82) Active confirmed Problem [id number] [facility] current use of diuretic (Z79.899) Active confirmed Plan Of Treatment Future Test Test Name Order Date COLONOSCOPY 05/16/2014 COLONOSCOPY 06/06/2021 Insurance Providers Payer Name Payer Address Payer Phone Subscriber Number Group Number Insured Name Patient Relationship to Insured Coverage Start Date Coverage End Date MEDICARE OF [place] [address] [place] [address] [id number] SHELBY SMITH Self - patient is the insured [employer] CLAIM[employer] [address] [place] [address] [phone] [id number] SHELBY SMITH Self - patient is the insured Medical (General) History Medical History History ICD Code Depression hypertension Colon polyps, last colonoscopy 01/23, fiv e-year followup recommended. Elevated cholesterol Surgical History Surgery Date(Month/Year) knee surgery appendectomy knee surgery right 10/2020 cateracts 2020
[2025-02-16 06:36] LABS: MANUAL DIFF FLAG NO
[2025-02-16 07:23] LABS: Hematocrit 43.4 % (42.0-52.0); Hemoglobin 14.3 g/dl (14.0-18.0); Imm Gran Abs Auto 0.05 X10*3/uL (0.00-0.03); Imm Gran Pct Auto 0.8 % (0.0-0.4); Lymphocytes Absolute Auto 1.3 X10*3/uL (1.2-4.9); Mean Corpuscular HGB Conc 32.9 g/dl (31.0-36.0); Mean Corpuscular Hemoglobin 30.7 pg (27.0-33.0); Mean Corpuscular Volume 93.1 fL (80.0-98.0); NRBC Abs Auto 0.000 X10*3/uL (0.0-0.012); NRBC Pct Auto 0.0 /100WBC (0.0-0.2); Platelet Count 177 X10*3/uL (160-400); Red Blood Count 4.66 X10*6/uL (4.60-5.80); White Blood Count 6.4 X10*3/uL (4.8-10.8)
[2025-02-16 07:45] LABS: Appearance Urine Clear; Glucose Urine UA Negative (Negative); PH 7.0 (5.0-9.0); Specific Gravity - Urine 1.015 (1.005-1.025); UMIC TRIGGER UACC YES
[2025-02-16 07:51] LABS: Alanine Aminotransferase 22 U/L (0-40); Albumin Level 4.3 g/dL (3.5-5.0); Alkaline Phosphatase 80 U/L (39-117); Anion Gap 12 (12-20); Aspartate Amino Transferase 27 U/L (5-37); Blood Urea Nitrogen 19 mg/dL (9-16); Calcium 9.4 mg/dL (8.4-10.2); Carbon Dioxide 31 mmol/L (22-29); Chloride 105 mmol/L (96-108); Cholesterol 165 mg/dL (<200); Estimated Glomerular Filt Rate > 60; HDL Cholesterol 49 mg/dL (>40); Potassium 4.2 mmol/L (3.3-5.1); Sodium 144 mmol/L (135-145); Total Protein 6.7 g/dL (6.5-8.0); Triglycerides 130 mg/dL (<150); Uric Acid 5.8 mg/dL (3.4-7.0)
== END 2025-02-16 06:13 | disposition home or self-care (01) ==
LOC: HO.LAB 06:12
PROVIDERS: PCP Internal Medicine; Visit Provider Internal Medicine
DX: D64.9 Anemia, unspecified (principal); E78.00 Pure hypercholesterolemia, unspecified; M10.9 Gout, unspecified
CPT/HCPCS: 36415; 80053; 80061; 81001; 84443; 84550; 85025

== ENCOUNTER 2025-02-23 10:19 | Outpatient (AMB) | payer MEDICARE, SELFPAY ==
[2025-02-23 10:25] VITALS: BP 124/76; PULSE 64; O2SAT 95; BMI 32.1
--- NOTE | 2025-02-23 10:25 | MHC.PC.OV ---
Vital Signs 02/23/25 10:25 Height 6 ft 1.5 in Weight 247 lb BMI 32.1 BP 124/76 Blood Pressure Location Lt brachial Position Sitting Pulse 64 Pulse Source Pulse Oximeter Pulse Oximetry (%) 95 Oxygen Delivery Method Room Air Intake Visit Reasons: LALITO from Suzan Certified Nurse Midwife Required: No Accompanied by: Self / Same As Patient Allergies No Known Allergies Allergy (Mild, Verified 02/23/25 11:04) NKA Medication List - Last Reconciled 02/23/25 by Mohit Montanez MD allopurinol 300 mg PO DAILY amlodipine 10 mg PO DAILY aspirin 81 mg PO DAILY hydrochlorothiazide 25 mg PO DAILY lovastatin 80 mg (2 x 40 mg) PO DAILY sertraline 100 mg PO DAILY Tobacco use date assessed: 02/23/25 Fall risk assessment: 2 + Falls in past year Last assessed Fall Risk: 02/23/25 Dental Screening Dental Screen Date: 02/23/25 Did you have a dental visit in the last 12 months?: No Did you have a dental problem in the last 6 months where you did not have access to dental care?: No Was dental information given to patient?: No HPI LALITO from Suzan HPI Details Patient comes in today for his follow up visit States that he feels okay He denies any headaches or dizziness Denies any chest pains, no increased SOB No nausea/vomiting, no abdominal pain No change in bowel habits noted Adds that he has been feeling depressed lately despite his current Rx He had his follow up labs done last week - to discuss his results [facility] Medical History Obesity (BMI 30-39.9) Pure hypercholesterolemia Essential hypertension Gout Hypertension Elevated cholesterol HTN (hypertension) Depression Screening for prostate cancer Screening for colon cancer Screening for diabetes mellitus Dyslipidemia Mood disorder Surgical History History of eye surgery History of total right knee replacement Hx of cataract extraction History of colonoscopy History of knee replacement History of rectal polypectomy History of hydrocelectomy History of appendectomy Family History Father Prostate cancer Hypertension Mother Hypertension Pancreatic cancer Family/Other Diabetes Sister Mental health disorder Social History (Reviewed 02/23/25 @ 10:26 by RAJIV Clemens Housing: House Alcohol intake: current Alcohol intake frequency: a few times a week Alcohol type: beer Patient Tobacco Use Status: Former Tobacco user Tobacco use type: Cigarette e-Cigarette/Vaping Use: Never Used Second Hand Smoke Exposure: Yes service: No Current occupational status: retired Cognitive needs: No Hearing needs: No Vision needs: Yes (Glasses) Questionnaire PHQ-9 Over the last 2 weeks, how often have you been bothered by any of the following problems? 1. Little interest or pleasure in doing things: not at all 2. Feeling down, depressed, or hopeless: several days 3. Trouble falling or staying asleep, or sleeping too much: nearly every day 4. Feeling tired or having little energy: nearly every day 5. Poor appetite or overeating: nearly every day 6. Feeling bad about yourself - or that you are a failure or have let yourself or your family down: not at all 7. Trouble concentrating on things, such as reading the newspaper or watching television: nearly every day 8. Moving or speaking so slowly that other people could have noticed. Or the opposite - being so fidgety or restless that you have been moving around a lot more than usual: nearly every day 9. Thoughts that you would be better off or of hurting yourself in some way: not at all Total score: 16 Depression Screening Interpretation: Positive Depression Screening Follow-up: Existing condition and In treatment Depression Screening Done: Yes 09929 - PHQ-9 Billing: Yes Source: Developed by Drs. Iban Quezada, Belinda Banda, Vinnie Greenfield and colleagues, with an educational ricky from [employer]. Thrive Questionnaire Date Thrive assessed: 02/23/25 I am a: Patient What is your living situation today?: I choose not to answer this question Within the past 12 months, did the food you bought not last and you didn't have the money to get more?: Never true Within the past 12 months, did you worry whether your food would run out before you got money to buy more?: Never true Do you have trouble paying for medicines?: No Do you have trouble getting transportation to medical appointments?: No Do you have trouble paying your heating and electricity bill?: No Do you have trouble taking care of your child, family member or friend?: No Do you have trouble with day-to-day activities such as bathing, preparing meals, shopping, managing finances, etc.?: No Are you currently unemployed and looking for a job?: No Are you interested in more education?: No Please select the resources that you would like help with: None Currently or been in a relationship where the following occur: No concerns reported THRIVE Score: 0 AUDIT C Alcohol Use Questionnaire (AUDIT-C) 1. How often do you have a drink containing alcohol?: 2-3 times a week 2. How many drinks containing alcohol do you have on a typical day when you are drinking?: 5 or 6 3. How often do you have six or more drinks on one occasion?: Monthly Total Score: 7 Score Reviewed/Action Taken: Yes NIRU-7 AMB Questionnaire NIRU-7 Date NIRU - 7 assessed: 02/23/25 Feeling nervous, anxious, or on edge: 1 = Several days Not being able to stop or control worryin = Several days Worrying too much about different things: 1 = Several days Trouble relaxin = Not at all Being so restless that it is hard to sit still: 0 = Not at all Becoming easily annoyed or irritable: 1 = Several days Feeling afraid as if something awful might happen: 0 = Not at all Total NIRU-7 score (0-4 normal; 5-9 mild; 10-14 moderate; 15-21 severe): 4 Source: Developed by Drs. Iban Quezada, Belinda Banda, Vinnie Greenfield and colleagues, with an educational ricky from [employer]. Review of Systems Const Denies chills, Reports fatigue, Denies fever(s) and Denies headache(s) ENT Denies dysphagia, Denies dizziness, Denies otalgia, Denies headache(s), Denies neck pain, Denies odynophagia and Denies sore throat Card Denies chest pain, Denies palpitations and Denies dyspnea Resp Denies chest congestion, Denies cough and Denies dyspnea GI Denies abdominal pain, Denies constipation, Denies dysphagia, Denies heartburn, Denies diarrhea, Denies nausea, Denies odynophagia and Denies vomiting Denies difficulty urinating, Denies dysuria, Denies nocturia and Denies urinary frequency Musc Denies back pain and Denies neck pain Skin/Breast Denies rash Neuro Denies dizziness and Denies headache(s) Psych Reports depression (increased lately) Endo Reports fatigue and Denies palpitations Physical exam (Primary Care) Vital Signs: Last Vital Signs Pulse 64 02/23/25 10:25 BP 124/76 02/23/25 10:25 Pulse Ox 95 02/23/25 10:25 Oxygen Delivery Method Room Air 02/23/25 10:25 BMI result Body Mass Index 32.1 Tobacco/Smoking Status: Tobacco use Status Tobacco use date assessed 02/23/25 02/23/25 10:31 Patient Tobacco Use Status Former Tobacco user 02/23/25 10:31 Tobacco use type Cigarette 02/23/25 10:31 e-Cigarette/Vaping Use Never Used 02/23/25 10:31 PHQ-9: PHQ-9 Score PHQ-9: Total score 16 02/23/25 11:06 Depression Screening Interpretation: Positive Depression Screening Follow-up: Existing condition and In treatment Thrive Assessment: Date of Thrive Assessment Date Thrive assessed 02/23/25 02/23/25 10:31 Currently or been in a relationship where the following occur: No concerns reported Const General: no acute distress and alert HENMT Ears: TM's normal bilaterally and EAC's normal Throat: Yes posterior oropharynx normal and Yes tonsils normal (no TP congestion) Neck Neck: Yes supple and No lymphadenopathy Thyroid: Thyroid normal Resp Auscultation: clear to auscultation bilaterally, no rales and no wheezes Cardio Rate: regular rate Rhythm: regular rhythm Heart sounds: no murmurs GI Palpation (GI): Soft to palpation and nontender Auscultation: normal bowel sounds General: Yes no CVA tenderness Back/Spine/Pelvis Back: no CVA tenderness Thoracic/Lumbar Spine: No lumbar spinal tenderness Skin Rashes: no rashes Extrem General: Yes no clubbing, cyanosis or edema Results Reviewed Results Reviewed: Laboratory Tests 02/16/25 02/16/25 06:30 06:34 WBC 6.4 Hgb 14.3 Hct 43.4 Plt Count 177 Sodium 144 Potassium 4.2 Creatinine 0.78 Estimated GFR > 60 Fasting Glucose 98 Uric Acid 5.8 Calcium 9.4 AST 27 ALT 22 Triglycerides 130 Cholesterol 165 LDL Cholesterol, Calc 90 HDL Cholesterol 49 TSH 2.14 Ur Specific [place] 1.015 Urine Protein Negative Urine Glucose (UA) Negative Urine Blood Small (1+) H Urine Nitrite Negative Ur Leukocyte Esterase Negative Coding Level of Care Code Est Pt Level 4 (94420) Diagnoses Essential hypertension I10 Pure hypercholesterolemia E78.00 Chronic gout without tophus, unspecified cause, unspecified site [id number].[id number] Chronicity: chronic Gout etiology: unspecified cause Gout site: unspecified site Presence of tophus: without tophus Severe obstructive sleep apnea in adult G47.33 Episode of recurrent major depressive disorder, unspecified depression episode severity F33.9 Active/Remission status: currently active Depression Type: major depressive disorder Major depression episode severity: unspecified Major depression recurrence: recurrent Obesity (BMI 30-39.9) E66.9 Additional Codes PHQ-9 - 79704 - PHQ-9 Billing: Yes ([id number]) Assessment & Plan Assessment & Plan (1) Essential hypertension: Code(s): I10 - Essential (primary) hypertension Category: Medical Plan: Reinforced low sodium diet - goal is systolic BP of at least 130 to 140 mm or less Continue Amlodipine 10 mg QD and HCTZ 25 mg QD Patient is reminded to continue monitoring his blood pressure regularly (2) Pure hypercholesterolemia: Code(s): E78.00 - Pure hypercholesterolemia, unspecified Category: Medical Plan: Results of his labs done last week reviewed and discussed with patient Reinforced low cholesterol diet Continue Lovastatin 80 mg QD Will recheck his labs and fasting lipids in 4 months for follow up (3) Gout: Code(s): M10.9 - Gout, unspecified Category: Medical Qualifiers: Chronicity: chronic Gout etiology: unspecified cause Gout site: unspecified site Presence of tophus: without tophus Qualified Code(s): M1A.9XX0 - Chronic gout, unspecified, without tophus (tophi) Plan: Patient denies any acute flare up of gout lately; his serum uric acid level was normal at 5.8 on his recent labs Reinforced low purine diet Continue Allopurinol 300 mg QD (4) Severe obstructive sleep apnea in adult: Code(s): G47.33 - Obstructive sleep apnea (adult) (pediatric) Category: Medical Plan: Patient tested positive for severe YESICA on a home sleep study done last month He was referred for an in-lab sleep study for CPAP titration and he is now scheduled for this in a couple of weeks on 03/19/2025 Echocardiogram done last month came out mostly normal - normal LV ejection fraction 55-60% with mild LVH with grade 1 diastolic dysfunction. Mildly dilated left atrium; cardiac valvular dopplers are within normal limits; mildly dilated ascending aorta at 4.1 cm, normal RV systolic pressure and no pericardial effusion Follow up with Sleep Medicine as scheduled (5) Depression: Code(s): F32.A - Depression, unspecified Category: Medical Qualifiers: Active/Remission status: currently active Depression Type: major depressive disorder Major depression episode severity: unspecified Major depression recurrence: recurrent Qualified Code(s): F33.9 - Major depressive disorder, recurrent, unspecified Plan: Will increase his Sertraline to 150 mg QD Follow up with psychiatry as scheduled (6) Obesity (BMI 30-39.9): Code(s): E66.9 - Obesity, unspecified Category: Medical Plan: Reinforced diet/exercise as tolerated/lose weight Plan Follow up in 4 months Orders: Orders Lipid Panel 4 Months E78.00 - Pure hypercholesterolemia, unspecified Complete Blood Count Auto Diff 4 Months D64.9 - Anemia, unspecified Comprehensive [place]. Panel Fast 4 Months E78.00 - Pure hypercholesterolemia, unspecified Prostate Specific Antigen 4 Months N40.0 - Benign prostatic hyperplasia without lower urinary tract symptoms Medications: Changed From sertraline 100 mg PO DAILY 90 tabs 1RF To sertraline 150 mg (1.5 x 100 mg) PO DAILY 135 tabs 1RF 90 days
--- OUTSIDE RECORDS SUMMARY | 2025-02-23 10:57 | XMS_ITS | Patient Health Record ---
Author Organization [facility] Address [address] [place] [address] Care Team Providers Care Button Maker Name Role Phone Francisco Mares MD Primary Care Provider Minesh Bueno Jr Unavailable [phone] Allergies No Known Allergies Reason For Referral [...] Problem Status W/U Status Risk Notes Problem 973355230 Colon cancer screening (Z12.11) Active confirmed Problem 777499568 Personal history of colonic polyps (Z86.010) Active confirmed Problem [id number] [employer] (current) use of aspirin (Z79.82) Active confirmed Problem [id number] long-term current use of diuretic (Z79.899) Active confirmed Plan Of Treatment Future Test Test Name Order Date COLONOSCOPY 05/16/2014 COLONOSCOPY 06/06/2021 Insurance Providers Payer Name Payer Address Payer Phone Subscriber Number Group Number Insured Name Patient Relationship to Insured Coverage Start Date Coverage End Date MEDICARE OF [place] [address] [place] [address] [id number] SHELBY SMITH Self - patient is the insured [employer] ATT[employer] CLAIMS [address] [place] [address] [id number] SHELBY SMITH Self - patient is the insured Medical (General) History Medical History History ICD Code Depression hypertension Colon polyps, last colonoscopy 01/23, fiv e-year followup recommended. Elevated cholesterol Surgical History Surgery Date(Month/Year) knee surgery appendectomy knee surgery right 10/2020 cateracts 2020
--- OUTSIDE RECORDS SUMMARY | 2025-02-23 10:57 | XMS_ITS | Patient Health Record ---
[facility]ie [place] Address [address] [facility] [place] [address] Care Team Providers Care Button Inspector Name Role Phone Francisco Mares MD Primary Care Provider Unavaila Jabier Kendrick Unavailable [phone] Reason For Referral No Information Medications Medication [...] W/U Status Risk Notes Problem Plantar wart (B07.0) Active confirmed Plan Of Treatment Pending Test Test Name Order Date [id number] Destruction, 1-14 03/02/2019 Insurance Providers Payer Name Payer Address Payer Phone Subscriber Number Group Number Insured Name Patient Relationship to Insured Coverage Start Date Coverage End Date Medicare National Govt Svcs Inc [address] [place] [address] [id number] Lee Ray Self - patient is the insured [employer] [facility] [address] [place] [address] [id number] Lee Ray Self - patient is the insured Medical (General) History Medical History History ICD Code Arthritis Back,Hip,and Knee pain Depression Gout High blood pressure Measles Chicken pox Joint implants/screws CAD Surgical History Surgery Date(Month/Year) Left Knee replacement 2008
== END 2025-02-23 11:25 | disposition home or self-care (01) ==
LOC: HO.HMCH 10:20
PROVIDERS: PCP Internal Medicine; Visit Provider Internal Medicine
DX: I10 Essential (primary) hypertension (principal); E78.00 Pure hypercholesterolemia, unspecified; E66.9 Obesity, unspecified; Z68.32 Body mass index [BMI] 32.0-32.9, adult; M1A.9XX0 Chronic gout, unspecified, without tophus (tophi); G47.33 Obstructive sleep apnea (adult) (pediatric); F33.9 Major depressive disorder, recurrent, unspecified

== ENCOUNTER → 2025-02-23 10:19 | Outpatient (BNVA) | payer MEDICARE, SELFPAY | PROVIDERS: PCP Internal Medicine; Visit Provider Internal Medicine | DX: I10 Essential (primary) hypertension (principal); E78.00 Pure hypercholesterolemia, unspecified; G47.33 Obstructive sleep apnea (adult) (pediatric); F33.9 Major depressive disorder, recurrent, unspecified; M1A.9XX0 Chronic gout, unspecified, without tophus (tophi); E66.9 Obesity, unspecified; Z68.32 Body mass index [BMI] 32.0-32.9, adult; Z71.3 Dietary counseling and surveillance | CPT/HCPCS: 96127; 99212 ==

== ENCOUNTER 2025-03-17 07:56 | Outpatient (AMB) | payer MEDICARE, SELFPAY ==
[2025-03-17 07:58] VITALS: BP 114/60; PULSE 60; O2SAT 95; BMI 32.3
--- NOTE | 2025-03-17 07:58 | MHC.OFFVIS ---
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 HST in chart(AHI-32, NICCI-77%. Trial APAP 6-20cm. Titration study was ordered by PCP but not scheduled yet. Allergies No Known Allergies Allergy (Mild, Verified 03/17/25 08:01) NKA HPI Comments Details: 79 year old male referred to us by his pcp for evaluation of YESICA. His Brigid helps with history today. HST c/w AHI-32, oxygen NICCI-77%. Trial APAP 6-20cm. Will assess for nocturnal hypoxemia once established on therapy. Reviewed labs with patient today. He goes to bed at 10pm has a difficult time staying asleep. He wakes up snoring, and gasping for air per his . He has multiple arousals for the bathroom and is not able to stay asleep. He is chronically fatigued, sluggish, has brain fog takes naps daily. He denies parasomnias, hallucinations, bruxism, morning headaches. His memory is poor at baseline, he has difficulty with word recall and processing information and gets confused easily. He drives locally and not at night, not on the highway due to visual deficits and r. eye retinal detachment. He is followed by Dr. Barnes at [facility] and Dr. Martinez the Retina specialist at [facility]. His mood can be irritable, but managed on sertraline 150mg po daily. Diet is poor at baseline, and would like to decrease sugar and carbs. He has RLS symptoms, has to move his legs until he falls asleep. He denies paresthesias, burning, tingling, and radiating pain, though has a h/o gout and on Allopurinol 300mg po. Denies smoking, is a former smoker and quit over 30 years ago. He has alcohol socially. [facility] Medical History Obesity (BMI 30-39.9) Pure hypercholesterolemia Essential hypertension Gout Hypertension Elevated cholesterol HTN (hypertension) Depression Screening for prostate cancer Screening for colon cancer Screening for diabetes mellitus Dyslipidemia Mood disorder Surgical History History of eye surgery History of total right knee replacement Hx of cataract extraction History of colonoscopy History of knee replacement History of rectal polypectomy History of hydrocelectomy History of appendectomy Family History Father Prostate cancer Hypertension Mother Hypertension Pancreatic cancer Family/Other Diabetes Sister Mental health disorder Social History Housing: House Alcohol intake: current Alcohol intake frequency: a few times a week Alcohol type: beer Patient Tobacco Use Status: Former Tobacco user Tobacco use type: Cigarette e-Cigarette/Vaping Use: Never Used Second Hand Smoke Exposure: Yes service: No Current occupational status: retired Cognitive needs: No Hearing needs: No Vision needs: Yes (Glasses) Physical Exam Vital Signs: Last Vital Signs Pulse 60 03/17/25 07:58 BP 114/60 03/17/25 07:58 Pulse Ox 95 03/17/25 07:58 Oxygen Delivery Method Room Air 03/17/25 07:58 BMI result Body Mass Index 32.3 Const General: cooperative, comfortable and no acute distress Nutritional Appearance: average body habitus Orientation/consciousness: patient oriented x3 HEENT Face and sinus: Yes face symmetric Teeth and gingiva: other ([place] score is 3) Eyes Pupils: Equal, round and reactive pupils present Neck Neck: Yes full ROM Resp Effort & Inspection: normal respiratory effort and able to speak in complete sentences Neuro Other: Fine motor coordination difficulty due to visual deficits r. eye. General: patient oriented x3 and moves all extremities Cranial nerves: Yes Equal, round and reactive pupils present, Yes Normal accommodation reflex present, Yes Normal facial strength present, Yes Midline tongue present, Yes Ability to bilaterally rotate head present and Yes Ability to bilaterally elevate shoulders present Cognition (Neuro): normal cognition Gait exam (Neuro): Normal gait present Motor exam (neuro): 5/5 motor strength present throughout and Normal motor muscle tone present throughout Deep tendon reflexes (DTR's): Right triceps reflex intensity grade: 2+, Left triceps reflex intensity grade: 2+, Rt Biceps (C5, C6): 2+, Left biceps reflex intensity grade: 2+, Right brachioradialis reflex intensity grade: 2+, Left brachioradialis reflex intensity grade: 2+, Right patellar reflex intensity grade: 2+, Left patellar reflex intensity grade: 2+, Right ankle reflex intensity grade: 2+ and Left ankle reflex intensity grade: 2+ Coordination: other Psych Appearance: grossly normal Thought process: Normal thought process present Thought content: Normal thought content present Results Reviewed Results Reviewed: HST c/w AHI-32, oxygen NICCI-77%. Trial APAP 6-20cm. Will assess for nocturnal hypoxemia once established on therapy. Reviewed labs with patient today. Assessment & Plan Assessment & Plan (1) Severe obstructive sleep apnea in adult: Code(s): G47.33 - Obstructive sleep apnea (adult) (pediatric) Category: Medical (2) Excessive daytime sleepiness: Code(s): G47.19 - Other hypersomnia Category: Medical (3) RLS (restless legs syndrome): Code(s): G25.81 - Restless legs syndrome Category: Medical Plan YESICA will start him on cpap [id number] and will assess for hypoxemia once established on cpap therapy. Sleep hygiene provided today. Wash mask, rinse hoses, change filters, fill reservoir with water. Labs reviewed will r/o fatigue with B12, VitD, Homocysteine, MMA, ferritin. TSH is normal, HDL is normal. RLS symptoms will monitor. F/u in 3 months for compliance. Patient Instructions: Sleep Hygiene provided: set a scheduled bedtime and wake time to help regulate the circadian rhythm and balance the release of pituitary hormones. Sleep in a dark room, temperatures below 68 degrees, and no devices n bed. Limit caffeinated products 6 hours prior to bed, and limit fluids 2-4 hours prior to bed. Gentle night yoga, diffusing essential oils, and playing soft music can be relaxing. Coding Level of Care Code New Pt Level 4 (61910) Diagnoses Severe obstructive sleep apnea in adult G47.33 Excessive daytime sleepiness G47.19 RLS (restless legs syndrome) G25.81 Time Spent (min) 35 Comment Start cpap therapy Sleep Questionnaire Difficulty falling asleep: No (3-4) Difficulty staying asleep?: Yes Number of arousals: 3-4 Snoring: Yes Witnessed apneas: Yes Gasping arousals: Yes Nocturia: Yes GERD: No Vivid dreams: Yes Acting out dreams: No Abnormal behavior in sleep: No Abnormal movements in sleep: No Morning headaches: No Excessive daytime sleepiness: Yes Daytime naps: Yes (1hour) Restless legs: Yes Hallucinations: No Sleep paralysis: No Drop attacks: No Sleep Study: Yes CPAP: No
--- OUTSIDE RECORDS SUMMARY | 2025-03-17 08:00 | XMS_ITS | Patient Health Record ---
Author Organization [facility]ie [place] Address [address] [place] [address] Care Team Providers Care Marine Operations Coordinator Name Role Phone Francisco Mares MD Primary Care Provider Unavaila Jabier Kendrick Unavailable [phone] Reason For Referral No Information Medications Medication [...] W/U Status Risk Notes Problem Plantar wart (28222594) Plantar wart (B07.0) Active confirmed Plan Of Treatment Pending Test Test Name Order Date [id number] Destruction, 1-14 03/02/2019 Insurance Providers Payer Name Payer Address Payer Phone Subscriber Number Group Number Insured Name Patient Relationship to Insured Coverage Start Date Coverage End Date Medicare National Govt [facility] [address] [place] [address] [id number] Lee Ray Self - patient is the insured adQ [facility] [address] [place] [address] [id number] Lee Ray Self - patient is the insured Medical (General) History Medical History History ICD Code Arthritis Back,Hip,and Knee pain Depression Gout High blood pressure Measles Chicken pox Joint implants/screws CAD Surgical History Surgery Date(Month/Year) Left Knee replacement 2008
--- OUTSIDE RECORDS SUMMARY | 2025-03-17 08:01 | XMS_ITS | Patient Health Record ---
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 aspirin (Z79.82) Active confirmed Problem [id number] group home current use of diuretic (Z79.899) Active confirmed Plan Of Treatment Future Test Test Name Order Date COLONOSCOPY 05/16/2014 COLONOSCOPY 06/06/2021 Insurance Providers Payer Name Payer Address Payer Phone Subscriber Number Group Number Insured Name Patient Relationship to Insured Coverage Start Date Coverage End Date MEDICARE OF [place] [address] [place] [address] [id number] SHELBY SMITH Self - patient is the insured [employer] CLAIMS [address] [place] [address] [phone] [id number] SHELBY SMITH Self - patient is the insured Medical (General) History Medical History History ICD Code Depression hypertension Colon polyps, last colonoscopy 01/23, fiv e-year followup recommended. Elevated cholesterol Surgical History Surgery Date(Month/Year) knee surgery appendectomy knee surgery right 10/2020 cateracts 2020
== END 2025-03-17 08:44 | disposition home or self-care (01) ==
LOC: HO.HSMS 07:56
PROVIDERS: PCP Internal Medicine; Visit Provider Physician Assistant Medical
DX: G47.33 Obstructive sleep apnea (adult) (pediatric) (principal); G47.19 Other hypersomnia; G25.81 Restless legs syndrome
CPT/HCPCS: 99204

== ENCOUNTER → 2025-03-17 07:56 | Outpatient (BNVA) | payer MEDICARE, SELFPAY | PROVIDERS: PCP Internal Medicine; Visit Provider Physician Assistant Medical | DX: G47.33 Obstructive sleep apnea (adult) (pediatric) (principal); G47.19 Other hypersomnia; G25.81 Restless legs syndrome | CPT/HCPCS: 99202 ==

== ENCOUNTER 2025-04-27 10:16 | Outpatient (REF) | payer MEDICARE, SELFPAY ==
[2025-04-27 11:22] LABS: Appearance Urine Turbid; Glucose Urine UA 250 mg/dL (Negative); PH 7.0 (5.0-9.0); Specific Gravity - Urine 1.015 (1.005-1.025); UMIC TRIGGER UACC YES
[2025-04-27 11:31] LABS: UACC Culture Trigger YES
--- OUTSIDE RECORDS SUMMARY | 2025-04-27 12:30 | XMS_ITS | Patient Health Record ---
Author Organization [facility] Address [address] [place] [address] Care Team Providers Care Security Orderly Name Role Phone Francisco Mares MD Primary [...] Problem Status W/U Status Risk Notes Problem [id number] Colon cancer screening (Z12.11) Active confirmed Problem 801347710 Personal history of colonic polyps (Z86.010) Active confirmed Problem 384856023410870 retirement (current) use of aspirin (Z79.82) Active confirmed Problem [id number] retirement current use of diuretic (Z79.899) Active confirmed Plan Of Treatment Future Test Test Name Order Date COLONOSCOPY 05/16/2014 COLONOSCOPY 06/06/2021 Insurance Providers Payer Name Payer Address Payer Phone Subscriber Number Group Number Insured Name Patient Relationship to Insured Coverage Start Date Coverage End Date MEDICARE OF [place] [address] [place] [address] [id number] SHELBY SMITH Self - patient is the insured [employer] ATT[employer] CLAIMS [address] [place] [address] [id number] SHELBY SMITH Self - patient is the insured Medical (General) History Medical History History ICD Code Depression hypertension Colon polyps, last colonoscopy 01/23, fiv e-year followup recommended. Elevated cholesterol Surgical History Surgery Date(Month/Year) knee surgery appendectomy knee surgery right 10/2020 cateracts 2020
--- OUTSIDE RECORDS SUMMARY | 2025-04-27 12:30 | XMS_ITS | Patient Health Record ---
[facility] [place] Address [address] [place] [address] Care Team Providers Care Chemical Manager Name Role Phone Francisco Mares MD Primary Care Provider Unavaila Jabier Kendrick Unavailable [phone] Reason For Referral No Information Medications Medication [...] W/U Status Risk Notes Problem Plantar wart (81139392) Plantar wart (B07.0) Active confirmed Plan Of Treatment Pending Test Test Name Order Date [id number] Destruction, 1-14 03/02/2019 Insurance Providers Payer Name Payer Address Payer Phone Subscriber Number Group Number Insured Name Patient Relationship to Insured Coverage Start Date Coverage End Date Medicare National Govt [facility] [address] [place] [address] [id number] Lee Ray Self - patient is the insured [employer] [facility] [address] [place] [address] [id number] Lee Ray Self - patient is the insured Medical (General) History Medical History History ICD Code Arthritis Back,Hip,and Knee pain Depression Gout High blood pressure Measles Chicken pox Joint implants/screws CAD Surgical History Surgery Date(Month/Year) Left Knee replacement 2008
== END 2025-04-27 10:17 | disposition home or self-care (01) ==
LOC: HO.LAB 10:16
PROVIDERS: PCP Internal Medicine; Visit Provider Internal Medicine
DX: R39.9 Unspecified symptoms and signs involving the genitourinary system (principal)
CPT/HCPCS: 81001; 87086

== ENCOUNTER 2025-06-21 12:08 | Outpatient (REF) | payer MEDICARE, SELFPAY ==
--- NOTE | ~2025-06-21 | US_ITS ---
CLINICAL HISTORY: R82.81 - Pyuria, PROTEINURIA,HEMATURIA US Renal Comparison: None provided Findings: Right kidney normal size and echotexture, 11.2 cm length. Left kidney normal size and echotexture, 11.9 cm length. Multiple simple appearing cysts bilaterally measuring up to 16 mm on the right and up to 4.6 cm on the left. No collecting system dilatation of either kidney. Normal color Doppler. IMPRESSION: 1. Simple appearing renal cysts. No hydronephrosis. This document has been electronically signed by: Andreina Jackson MD on 06/22/2025 09:15:03
--- OUTSIDE RECORDS SUMMARY | 2025-06-21 14:01 | XMS_ITS | Patient Health Record ---
Author Organization [facility] Address [address] [place] [address] Care Team Providers Care Paper Reel Operator Name Role Phone Francisco Mares MD Primary Care Provider Minesh Bueno Jr Unavailable Allergies No Known Allergies Reason For Referral No Information Medications Medication SIG (Take, Route, Frequency, Duration) Notes Start Date End Date Status hydroCHLOROthiazide 25 MG 1 tablet Orall y Once a day Active OsmoPrep 1.102-0.398 GM 32 tablets Orall y over two days as directed; Duration: 2 day(s) 06/06/2021 Active Sertraline HCl 100 MG 1 tablet Orally On ce a day Active Lovastatin Active Allopurinol 300 MG 1 tablet Orally Once a day Active Colyte with Flavor Packs 240 GM As direc adilene Orally Over the specified time.; Duration: 1 day(s) 05/16/2014 Active Aspir-81 81 MG [...] Problem Status W/U Status Risk Notes Problem Colon cancer screening (508513388) Colon cancer screening (Z12.11) Active confirmed Problem History of polyp of colon (situation) (669219642) Personal history of colonic polyps (Z86.010) Active confirmed Problem Long-term current use of antiplatelet drug (609656322206044) roasterman (current) use of aspirin (Z79.82) Active confirmed Problem Long-term current use of drug therapy (645667725) custodial current use of diuretic (Z79.899) Active confirmed Plan Of Treatment Future Test Test Name Order Date COLONOSCOPY 05/16/2014 COLONOSCOPY 06/06/2021 Insurance Providers Payer Name Payer Address Payer Phone Subscriber Number Group Number Insured Name Patient Relationship to Insured Coverage Start Date Coverage End Date MEDICARE OF [place] [address] [place] [address] [phone] [id number] SHELBY SMITH Self - patient is the insured MEDEX ATTN CLAIMS [address] [place] [address] [id number] SHELBY SMITH Self - patient is the insured Medical (General) History Medical History History ICD Code Depression hypertension Colon polyps, last colonoscopy 01/23, fiv e-year followup recommended. Elevated cholesterol Surgical History Surgery Date(Month/Year) knee surgery appendectomy knee surgery right 10/2020 cateracts 2020
--- OUTSIDE RECORDS SUMMARY | 2025-06-21 14:01 | XMS_ITS | Patient Health Record ---
[facility] [place] Address [address] [place] [address] Care Team Providers Care Kiln Charger Name Role Phone Francisco Mares MD Primary Care Provider Unavaila Jabier Kendrick Unavailable [phone] Reason For Referral No Information Medications Medication [...] W/U Status Risk Notes Problem Plantar wart (81946791) Plantar wart (B07.0) Active confirmed Plan Of Treatment Pending Test Test Name Order Date [id number] Destruction, 1-14 03/02/2019 Insurance Providers Payer Name Payer Address Payer Phone Subscriber Number Group Number Insured Name Patient Relationship to Insured Coverage Start Date Coverage End Date Medicare National Govt [facility] [address] [place] [address] [id number] Lee Ray Self - patient is the insured [employer] [facility] [address] [place] [address] [id number] Lee Ray Self - patient is the insured Medical (General) History Medical History History ICD Code Arthritis Back,Hip,and Knee pain Depression Gout High blood pressure Measles Chicken pox Joint implants/screws CAD Surgical History Surgery Date(Month/Year) Left Knee replacement 2008
== END 2025-06-21 12:09 | disposition home or self-care (01) ==
LOC: HO.US 12:08
PROVIDERS: PCP Internal Medicine; Visit Provider Internal Medicine
DX: R82.81 Pyuria (principal); R80.9 Proteinuria, unspecified; R31.9 Hematuria, unspecified
CPT/HCPCS: 76775

== ENCOUNTER → 2025-06-21 12:11 | Outpatient (BNV) | payer MEDICARE, SELFPAY | PROVIDERS: PCP Internal Medicine; Visit Provider Radiology Diagnostic Radiology | DX: R82.81 Pyuria (principal) | CPT/HCPCS: 76775 ==

== ENCOUNTER 2025-07-05 06:09 | Outpatient (REF) | payer MEDICARE, SELFPAY ==
[2025-07-05 06:25] LABS: MANUAL DIFF FLAG NO
[2025-07-05 07:17] LABS: Hematocrit 47.2 % (42.0-52.0); Hemoglobin 15.4 g/dl (14.0-18.0); Imm Gran Abs Auto 0.04 X10*3/uL (0.00-0.03); Imm Gran Pct Auto 0.5 % (0.0-0.4); Lymphocytes Absolute Auto 1.4 X10*3/uL (1.2-4.9); Mean Corpuscular HGB Conc 32.6 g/dl (31.0-36.0); Mean Corpuscular Hemoglobin 30.6 pg (27.0-33.0); Mean Corpuscular Volume 93.8 fL (80.0-98.0); NRBC Abs Auto 0.000 X10*3/uL (0.0-0.012); NRBC Pct Auto 0.0 /100WBC (0.0-0.2); Platelet Count 178 X10*3/uL (160-400); Red Blood Count 5.03 X10*6/uL (4.60-5.80); White Blood Count 7.4 X10*3/uL (4.8-10.8)
[2025-07-05 07:22] LABS: Appearance Urine Clear; Glucose Urine UA Negative (Negative); PH 7.0 (5.0-9.0); Specific Gravity - Urine 1.015 (1.005-1.025); UMIC TRIGGER UACC YES
[2025-07-05 07:42] LABS: Alanine Aminotransferase 22 U/L (0-40); Albumin Level 4.6 g/dL (3.5-5.0); Alkaline Phosphatase 94 U/L (39-117); Anion Gap 12 (12-20); Aspartate Amino Transferase 30 U/L (5-37); Blood Urea Nitrogen 22 mg/dL (9-16); Calcium 9.9 mg/dL (8.4-10.2); Carbon Dioxide 33 mmol/L (22-29); Chloride 103 mmol/L (96-108); Cholesterol 190 mg/dL (<200); Estimated Glomerular Filt Rate > 60; HDL Cholesterol 48 mg/dL (>40); Potassium 4.0 mmol/L (3.3-5.1); Sodium 144 mmol/L (135-145); Total Protein 7.2 g/dL (6.5-8.0); Triglycerides 200 mg/dL (<150)
[2025-07-05 07:59] LABS: Prostate Specific Antigen 1.09 ng/mL (<0.05-4.0)
== END 2025-07-05 06:10 | disposition home or self-care (01) ==
LOC: HO.LAB 06:09
PROVIDERS: PCP Internal Medicine; Visit Provider Internal Medicine
DX: N40.0 Benign prostatic hyperplasia without lower urinary tract symptoms (principal); D64.9 Anemia, unspecified; E78.00 Pure hypercholesterolemia, unspecified; Z12.5 Encounter for screening for malignant neoplasm of prostate
CPT/HCPCS: 36415; 80053; 80061; 81001; 84153; 85025

== ENCOUNTER 2025-07-06 09:35 | Outpatient (AMB) | payer MEDICARE, SELFPAY ==
--- NOTE | 2025-07-06 09:58 | MHC.PC.OV ---
Vital Signs 07/06/25 09:59 Height 6 ft 1.5 in Weight 249 lb BMI 32.4 BP 128/62 Blood Pressure Location Lt brachial Position Sitting Respiration 18 Pulse 61 Pulse Source Pulse Oximeter Temp Source Temporal Artery Scan Pulse Oximetry (%) 93 Oxygen Delivery Method Room Air Intake Visit Reasons: YESICA, anxiety, hyperlipidemia Automatic Beam Warper Tender Required: No Accompanied by: Self / Same As Patient Allergies No Known Allergies Allergy (Mild, Verified 07/06/25 10:29) NKA Medication List - Last Reconciled 07/06/25 by Mohit Montanez MD allopurinol 300 mg PO DAILY amlodipine 10 mg PO DAILY aspirin 81 mg PO DAILY hydrochlorothiazide 25 mg PO DAILY lovastatin 80 mg (2 x 40 mg) PO DAILY sertraline 150 mg (1.5 x 100 mg) PO DAILY 90 days Tobacco use date assessed: 07/06/25 Fall risk assessment: 1 Fall in past year Last assessed Fall Risk: 07/06/25 Dental Screening Dental Screen Date: 07/06/25 Did you have a dental visit in the last 12 months?: No Did you have a dental problem in the last 6 months where you did not have access to dental care?: No Was dental information given to patient?: No HPI YESICA, anxiety, hyperlipidemia HPI Details Patient comes in today for his follow up visit States that he feels okay He denies any headaches or dizziness Denies any chest pains, no increased SOB No nausea/vomiting, no abdominal pain No change in bowel habits noted He had his follow up labs done yesterday - to discuss his results States that he already got his flu shot at his local pharmacy a few weeks ago [facility] Medical History Obesity (BMI 30-39.9) Pure hypercholesterolemia Essential hypertension Gout Hypertension Elevated cholesterol HTN (hypertension) Depression Screening for prostate cancer Screening for colon cancer Screening for diabetes mellitus Dyslipidemia Mood disorder Surgical History History of eye surgery History of total right knee replacement Hx of cataract extraction History of colonoscopy History of knee replacement History of rectal polypectomy History of hydrocelectomy History of appendectomy Family History Father Prostate cancer Hypertension Mother Hypertension Pancreatic cancer Family/Other Diabetes Sister Mental health disorder Social History Housing: House Alcohol intake: current Alcohol intake frequency: a few times a week Alcohol type: beer Patient Tobacco Use Status: Former Tobacco user Tobacco use type: Cigarette e-Cigarette/Vaping Use: Never Used Second Hand Smoke Exposure: Yes service: No Current occupational status: retired Cognitive needs: No Hearing needs: No Vision needs: Yes (Glasses) Questionnaire PHQ-9 Over the last 2 weeks, how often have you been bothered by any of the following problems? 1. Little interest or pleasure in doing things: not at all 2. Feeling down, depressed, or hopeless: several days 3. Trouble falling or staying asleep, or sleeping too much: nearly every day 4. Feeling tired or having little energy: nearly every day 5. Poor appetite or overeating: nearly every day 6. Feeling bad about yourself - or that you are a failure or have let yourself or your family down: not at all 7. Trouble concentrating on things, such as reading the newspaper or watching television: nearly every day 8. Moving or speaking so slowly that other people could have noticed. Or the opposite - being so fidgety or restless that you have been moving around a lot more than usual: nearly every day 9. Thoughts that you would be better off or of hurting yourself in some way: not at all Total score: 16 Depression Screening Interpretation: Positive Depression Screening Follow-up: Existing condition and In treatment Depression Screening Done: Yes 10400 - PHQ-9 Billing: Yes Source: Developed by Drs. Iban Quezada, Belinda Banda, Vinnie Greenfield and colleagues, with an educational ricky from [employer]. Thrive Questionnaire Date Thrive assessed: 12/29/24 I am a: Patient What is your living situation today?: I choose not to answer this question Within the past 12 months, did the food you bought not last and you didn't have the money to get more?: Never true Within the past 12 months, did you worry whether your food would run out before you got money to buy more?: Never true Do you have trouble paying for medicines?: No Do you have trouble getting transportation to medical appointments?: No Do you have trouble paying your heating and electricity bill?: No Do you have trouble taking care of your child, family member or friend?: No Do you have trouble with day-to-day activities such as bathing, preparing meals, shopping, managing finances, etc.?: No Are you currently unemployed and looking for a job?: No Are you interested in more education?: No Please select the resources that you would like help with: None Currently or been in a relationship where the following occur: No concerns reported THRIVE Score: 0 NIRU-7 AMB Questionnaire NIRU-7 Date NIRU - 7 assessed: 02/23/25 Source: Developed by Drs. Iban Quezada, Belinda Banda, Vinnie Greenfield and colleagues, with an educational ricky from [employer]. Review of Systems Const Denies chills, Reports fatigue, Denies fever(s) and Denies headache(s) ENT Denies dysphagia, Denies dizziness, Denies otalgia, Denies headache(s), Denies neck pain, Denies odynophagia and Denies sore throat Card Denies chest pain, Denies palpitations and Denies dyspnea Resp Denies chest congestion, Denies cough and Denies dyspnea GI Denies abdominal pain, Denies constipation, Denies dysphagia, Denies heartburn, Denies diarrhea, Denies nausea, Denies odynophagia and Denies vomiting Denies difficulty urinating, Denies dysuria, Denies nocturia and Denies urinary frequency Musc Denies back pain and Denies neck pain Skin/Breast Denies rash Neuro Denies dizziness and Denies headache(s) Psych Reports depression (better controlled now) Endo Reports fatigue and Denies palpitations Physical exam (Primary Care) Vital Signs: Last Vital Signs Pulse 61 07/06/25 09:59 Resp 18 07/06/25 09:59 BP 128/62 07/06/25 09:59 Pulse Ox 93 07/06/25 09:59 Oxygen Delivery Method Room Air 07/06/25 09:59 BMI result Body Mass Index 32.4 Tobacco/Smoking Status: Tobacco use Status Tobacco use date assessed 07/06/25 07/06/25 10:03 Patient Tobacco Use Status Former Tobacco user 07/06/25 10:03 Tobacco use type Cigarette 07/06/25 10:03 e-Cigarette/Vaping Use Never Used 07/06/25 10:03 Depression Screening Interpretation: Positive Depression Screening Follow-up: Existing condition and In treatment Thrive Assessment: Date of Thrive Assessment Date Thrive assessed 12/29/24 07/06/25 10:03 Currently or been in a relationship where the following occur: No concerns reported Const General: no acute distress and alert HENMT Ears: TM's normal bilaterally and EAC's normal Throat: Yes posterior oropharynx normal and Yes tonsils normal (no TP congestion) Neck Neck: Yes supple and No lymphadenopathy Thyroid: Thyroid normal Resp Auscultation: clear to auscultation bilaterally, no rales and no wheezes Cardio Rate: regular rate Rhythm: regular rhythm Heart sounds: no murmurs GI Palpation (GI): Soft to palpation and nontender Auscultation: normal bowel sounds General: Yes no CVA tenderness Back/Spine/Pelvis Back: no CVA tenderness Thoracic/Lumbar Spine: No lumbar spinal tenderness Skin Rashes: no rashes Extrem General: Yes no clubbing, cyanosis or edema Results Reviewed Results Reviewed: Laboratory Tests 07/05/25 07/05/25 06:20 06:22 WBC 7.4 Hgb 15.4 Hct 47.2 Plt Count 178 Sodium 144 Potassium 4.0 Creatinine 0.80 Estimated GFR > 60 Fasting Glucose 93 Calcium 9.9 AST 30 ALT 22 Triglycerides 200 H Cholesterol 190 LDL Cholesterol, Calc 102 H HDL Cholesterol 48 Prostate Specific Ag 1.09 Ur Specific [place] 1.015 Urine Protein Negative Urine Glucose (UA) Negative Urine Blood Trace H Urine Nitrite Negative Ur Leukocyte Esterase Negative Coding Level of Care Code Est Pt Level 4 (25202) Diagnoses Essential hypertension I10 Pure hypercholesterolemia E78.00 Chronic gout without tophus, unspecified cause, unspecified site [id number].[id number] Gout site: unspecified site Gout etiology: unspecified cause Chronicity: chronic Presence of tophus: without tophus Severe obstructive sleep apnea in adult G47.33 Episode of recurrent major depressive disorder, unspecified depression episode severity F33.9 Depression Type: major depressive disorder Major depression recurrence: recurrent Active/Remission status: currently active Major depression episode severity: unspecified Obesity (BMI 30-39.9) E66.9 Additional Codes PHQ-9 - 47654 - PHQ-9 Billing: Yes ([id number]) Assessment & Plan Assessment & Plan (1) Essential hypertension: Code(s): I10 - Essential (primary) hypertension Category: Medical Plan: Reinforced low sodium diet - goal is systolic BP of at least 130 to 140 mm or less especially since his echocardiogram done a few months ago revealed (+) mild dilatation (4.1 cm) of the ascending aorta Continue Amlodipine 10 mg QD and HCTZ 25 mg QD Patient is reminded to continue monitoring his blood pressure regularly (2) Pure hypercholesterolemia: Code(s): E78.00 - Pure hypercholesterolemia, unspecified Category: Medical Plan: Results of his labs done yesterday reviewed and discussed with patient - he is cautioned that his serum triglyceride level has increased significantly from previous on his recent labs; his LDL cholesterol has also gone up slightly from previous Reinforced low cholesterol diet Continue Lovastatin 80 mg QD Will recheck his labs and fasting lipids in 4 months for follow up (3) Gout: Code(s): M10.9 - Gout, unspecified Category: Medical Qualifiers: Gout site: unspecified site Gout etiology: unspecified cause Chronicity: chronic Presence of tophus: without tophus Qualified Code(s): M1A.9XX0 - Chronic gout, unspecified, without tophus (tophi) Plan: Patient denies any acute flare up of gout lately; his serum uric acid level was normal at 5.8 when previously checked a few months ago Reinforced low purine diet Continue Allopurinol 300 mg QD (4) Severe obstructive sleep apnea in adult: Code(s): G47.33 - Obstructive sleep apnea (adult) (pediatric) Category: Medical Plan: Patient tested positive for severe YESICA on a home sleep study done last month He was referred for an in-lab sleep study for CPAP titration and he had it done on 03/19/2025, confirming compliance with his device usage Echocardiogram done a few months ago came out mostly normal - normal LV ejection fraction 55-60% with mild LVH with grade 1 diastolic dysfunction. Mildly dilated left atrium; cardiac valvular dopplers are within normal limits; mildly dilated ascending aorta at 4.1 cm, normal RV systolic pressure and no pericardial effusion Follow up with Sleep Medicine as scheduled (5) Depression: Code(s): F32.A - Depression, unspecified Category: Medical Qualifiers: Depression Type: major depressive disorder Major depression recurrence: recurrent Active/Remission status: currently active Major depression episode severity: unspecified Qualified Code(s): F33.9 - Major depressive disorder, recurrent, unspecified Plan: Continue Sertraline 150 mg QD - patient feels that his depression has gotten better controlled with his recent dose adjustment Follow up with psychiatry as scheduled (6) Obesity (BMI 30-39.9): Code(s): E66.9 - Obesity, unspecified Category: Medical Plan: Reinforced diet/exercise as tolerated/lose weight Plan Follow up in 4 months Orders: Orders Lipid Panel 4 Months E78.00 - Pure hypercholesterolemia, unspecified UA CC w/rflx Micro + Cult 4 Months R30.0 - Dysuria Uric Acid 4 Months M10.9 - Gout, unspecified Vitamin D 25-OH Total 4 Months E55.9 - Vitamin D deficiency, unspecified Complete Blood Count Auto Diff 4 Months D64.9 - Anemia, unspecified Comprehensive [place]. Panel Fast 4 Months E78.00 - Pure hypercholesterolemia, unspecified TSH reflex Free T4 4 Months E78.00 - Pure hypercholesterolemia, unspecified
[2025-07-06 09:59] VITALS: BP 128/62; PULSE 61; RESP 18; O2SAT 93; BMI 32.4
--- OUTSIDE RECORDS SUMMARY | 2025-07-06 10:52 | XMS_ITS | Patient Health Record ---
[facility] [place] Address [address] [facility] [place] [address] Care Team Providers Care Deal Architect Name Role Phone Francisco Mares MD Primary Care Provider Unavaila Jabier Kendrick Unavailable [phone] Reason For Referral No Information Medications Medication [...] W/U Status Risk Notes Problem Plantar wart ([id number]) Plantar wart (B07.0) Active confirmed Plan Of Treatment Pending Test Test Name Order Date [id number] Destruction, 1-14 03/02/2019 Insurance Providers Payer Name Payer Address Payer Phone Subscriber Number Group Number Insured Name Patient Relationship to Insured Coverage Start Date Coverage End Date Medicare National Govt [facility] [address] [place] [address] [id number] Lee Ray Self - patient is the insured [facility] [address] [place] [address] [id number] Lee Ray Self - patient is the insured Medical (General) History Medical History History ICD Code Arthritis Back,Hip,and Knee pain Depression Gout High blood pressure Measles Chicken pox Joint implants/screws CAD Surgical History Surgery Date(Month/Year) Left Knee replacement 2008
--- OUTSIDE RECORDS SUMMARY | 2025-07-06 10:52 | XMS_ITS | Patient Health Record ---
Author Organization [facility] Address [address] [place] [address] Care Team Providers Care Business And Financial Counsel Name Role Phone Francisco Mares MD Primary Care Provider Minesh Bueno Jr Unavailable Allergies No Known Allergies Reason For Referral No Information Medications Medication SIG (Take, Route, Frequency, Duration) Notes Start Date End Date Status hydroCHLOROthiazide 25 MG Tablet 1 tablet Orally Once a day Active OsmoPrep 1.102-0.398 GM Tablet 32 tablet s Orally over two days as directed; Duration: 2 day(s) 06/06/2021 Active Sertraline HCl 100 MG Tablet 1 tablet Or ally Once a day Active Lovastatin Active Allopurinol 300 MG Tablet 1 tablet Orall y Once a day Active Colyte with Flavor Packs 240 GM Solution Reconstituted As directed Orally Over the specified time.; Duration: 1 day(s) 05/16/2014 Active Aspir-81 81 MG Tablet Delaye d Release 1 tablet Orally Once a day Active amLODIPine Besylate 10 MG Tablet 1 tablet Orally Once a day Active Immunizations Vaccine Route Administration Date Status Comme nts Influenza Unknown 05/11/2020 Administered Social History Social History Drugs/Alcohol: Social Info Question Answer Notes Alcohol Screen Did you have a drink containing alcohol in the past year? Yes How often did you have a drink containing alcohol in the past year? 2 to 3 times a week (3 points) How many drinks did you have on a typical day when you were drinking in the past year? 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 of aspirin (Z79.82) Active confirmed Problem Long-term current use of drug therapy (304206085) USP current use of diuretic (Z79.899) Active confirmed Plan Of Treatment Future Test Test Name Order Date COLONOSCOPY 05/16/2014 COLONOSCOPY 06/06/2021 Insurance Providers Payer Name Payer Address Payer Phone Subscriber Number Group Number Insured Name Patient Relationship to Insured Coverage Start Date Coverage End Date MEDICARE OF [place] [address] [place] [address] [id number] SHELBY SMITH Self - patient is the insured [employer] CLAIMS [address] [place] [address] [id number] SHELBY SMITH Self - patient is the insured Medical (General) History Medical History History ICD Code Depression hypertension Colon polyps, last colonoscopy 01/23, fiv e-year followup recommended. Elevated cholesterol Surgical History Surgery Date(Month/Year) knee surgery appendectomy knee surgery right 10/2020 [employer] 2020
== END 2025-07-06 10:35 | disposition home or self-care (01) ==
LOC: HO.HMCH 09:36
PROVIDERS: PCP Internal Medicine; Visit Provider Internal Medicine
DX: I10 Essential (primary) hypertension (principal); E78.00 Pure hypercholesterolemia, unspecified; M1A.9XX0 Chronic gout, unspecified, without tophus (tophi); G47.33 Obstructive sleep apnea (adult) (pediatric); F33.9 Major depressive disorder, recurrent, unspecified; E66.9 Obesity, unspecified

== ENCOUNTER → 2025-07-06 09:35 | Outpatient (BNVA) | payer MEDICARE, SELFPAY | PROVIDERS: PCP Internal Medicine; Visit Provider Internal Medicine | DX: I10 Essential (primary) hypertension (principal); E78.00 Pure hypercholesterolemia, unspecified; M1A.9XX0 Chronic gout, unspecified, without tophus (tophi); G47.33 Obstructive sleep apnea (adult) (pediatric); F33.9 Major depressive disorder, recurrent, unspecified; E66.9 Obesity, unspecified; Z68.32 Body mass index [BMI] 32.0-32.9, adult; Z71.3 Dietary counseling and surveillance | CPT/HCPCS: 96127; 99212 ==